=== PATIENT | female | born 1970 | race Caucasian/White ===

== ENCOUNTER 2019-04-25 15:55 | Outpatient (CLI) | payer OTHER, SELFPAY ==
--- NOTE | ~2019-04-25 | MM_ITS ---
EXAMINATION: MM screening [facility] BI w jamie HISTORY: Screening mammogram TECHNIQUE: Craniocaudal and mediolateral oblique 3-D tomosynthesis images were obtained and synthetic 2-D images were generated. CAD analysis was submitted and interpreted. COMPARISON: 04/07/2018, 02/28/2017, 02/21/2016 bilateral digital screening mammogram examinations BREAST PARENCHYMAL COMPOSITION: The breasts are almost entirely fatty... FINDINGS: There is no evidence of suspicious mass, calcification, or architectural distortion to sugg est malignancy in either breast. There has been no suspicious interval change. IMPRESSION: 1. No mammographic evidence of malignancy. 2. Recommend routine screening mammography in one year. BI-RADS Category 1: Negative Reviewed, dictated and finalized at location A. E WATER OPERATOR
== END 2019-04-25 15:56 | disposition home or self-care (01) ==
LOC: ANHIMG 15:58
PROVIDERS: PCP Family Medicine; Visit Provider Family Medicine
DX: Z12.31 Encounter for screening mammogram for malignant neoplasm of breast (principal)
CPT/HCPCS: 77063; 77067

== ENCOUNTER 2020-06-02 15:35 | Outpatient (CLI) | payer OTHER, SELFPAY ==
--- NOTE | ~2020-06-02 | MM_ITS ---
EXAMINATION: MM screening [facility] BI w jamie HISTORY: Screening TECHNIQUE: Craniocaudal and mediolateral oblique 3-D tomosynthesis images were obtained and synthetic 2-D images were generated. CAD analysis was submitted and interpreted. COMPARISON: Comparison to multiple prior studies sequentially, with oldest reviewed study dated 01/18. BREAST PARENCHYMAL COMPOSITION: There are scattered areas of fibroglandular density. FINDINGS: There is no evidence of suspicious mass, calcification, or architectural distortion to sugg est malignancy in either breast. There has been no suspicious interval change. IMPRESSION: 1. No mammographic evidence of malignancy. 2. Recommend routine screening mammography in one year. BI-RADS Category 1: Negative Reviewed, dictated and finalized at location A.
== END 2020-06-02 15:36 | disposition home or self-care (01) ==
LOC: ANHIMG 15:40
PROVIDERS: PCP Family Medicine; Visit Provider Family Medicine
DX: Z12.31 Encounter for screening mammogram for malignant neoplasm of breast (principal)
CPT/HCPCS: 77063; 77067

== ENCOUNTER → 2021-01-25 03:55 | Outpatient (CLI) | payer OTHER, SELFPAY ==
[2021-01-25 16:54] LABS: SARS-CoV-2 RNA PCR Negative
== END ==
PROVIDERS: PCP Family Medicine; Visit Provider Internal Medicine Gastroenterology
DX: Z01.812 Encounter for preprocedural laboratory examination (principal); Z20.822 Contact with and (suspected) exposure to COVID-19
CPT/HCPCS: C9803; U0003; U0005

== ENCOUNTER 2021-01-28 02:10 | Day surgery (SDC) | payer OTHER, SELFPAY ==
[2021-01-17 12:33] VITALS: BMI 27.4
--- NOTE | 2021-01-28 09:00 | P.PNAN_ITS ---
Anes - Initial Pre Proc Eval Procedure: Operation Date: 01/28/21 10:00 Proposed Procedures p Screening Colonoscopy - Dmitriy Whitlock MD Date/Time: 01/28/21 09:00 Surgeon: Dmitriy Whitlock MD Pre Op Diagnosis: neoplasm screening Patient Data Age: 50 Gender: F Height: 1.57 m Weight: 68.1 kg Allergies Allergy/AdvReac Type Severity Reaction Status Date / Time No Known Allergies Allergy Verified 01/28/21 08:59 Home Medications Medication Instructions Recorded Confirmed Type aspirin 81 mg tablet,delayed 81 mg PO DAILY 05/21/19 01/28/21 History release glucosamine-chondroitin 250 mg-200 1 tablet PO BID tablet 09/10/19 01/28/21 History mg tablet levonorgestrel 20 mcg/24 hours (7 1 device I-UTERINE ONCE 09/10/19 01/28/21 History yrs) 52 mg intrauterine device minoxidil 5 % topical foam 5 % TOPICAL DAILY 09/10/19 01/28/21 History multivitamin 1 tablet PO DAILY 09/10/19 01/28/21 History rosuvastatin 20 mg tablet 20 mg PO DAILY 08/13/20 01/28/21 History spironolactone 100 mg tablet See Rx Instructions .ROUTE 11/13/20 01/28/21 Rx .COMPLEX #90 tablet levothyroxine 25 mcg tablet See Rx Instructions .ROUTE 12/05/20 01/28/21 Rx .COMPLEX #90 tablet Patient hx anesthesia problems: none Family hx anesthesia problems: none Results Review: All pre-operative results and documents have been reviewed as part of the pre-operative evaluation. [facility] Past Medical History Medical History Female pattern hair loss Hyperlipidemia, unspecified Hypothyroidism, unspecified Surgical History Surgical History Hx of section 2001 & 2005 Family History Family History Father Hypertension, Onset Age: 40 Cerebrovascular accident, Onset Age: 40 Family history of coronary artery disease, Onset Age: 40 Patient's father is , Onset Age: 40 Mother Family history of malignant neoplasm of ovary Patient's mother is , Onset Age: 40 Social History Social History Smoking status: Never smoker Second hand tobacco smoke exposure: No Alcohol intake: current Drinks per week: 1 Alcohol use details: social Substance use: never Substance use type: does not use Living arrangements: with family Gender identity (if verbalized by the patient): Female Spiritual care concerns: No Anes - Eval Final PreProcedure Day of Procedure 01/28/21 09:00 Patient weight: overweight Heart: regular rate and rhythm Lungs: clear to auscultation Airway: Mallampati scale class II Neurological: alert and oriented Last oral intake: >/= 8 hours ASA classification: II Emergent: no Anesthetic plan: proceed Anesthesia type and monitoring: general GIVS and standard monitoring Results Review: All pre-operative results and documents have been reviewed as part of the pre-operative evaluation. Informed Consent: The patient's anesthetic plan and its attendant risks and benefits were discussed with the patient/family/POA. Questions were solicited and answers provided to the satisfaction of the patient/family/POA.
[2021-01-28 09:01] VITALS: BP 119/67; PULSE 92; RESP 16; TEMP 36.1; O2SAT 98; BMI 22.8
[2021-01-28] MEDS: LACTATED RINGERS 1,000 ML 150 ML IV CONT (09:10)
--- NOTE | 2021-01-28 09:14 | PM.HPGS ---
History of Present Illness History of Present Illness Consent: Risks, benefits, and alternatives have been discussed and questions answered. Patient agrees to proceed with procedure. Chief complaint: neoplasm screening Narrative: Socorro Montoya is a 50 year old female here for first screening colonoscopy Review of Systems Constitutional: Constitutional: Denies headache(s) and Denies weakness Eyes: Eyes: Denies blurry vision ENT: Reports Normal hearing present, Denies headache(s) and Denies neck pain Cardiovascular: Cardiovascular: Denies chest pain and Denies dyspnea Respiratory: Respiratory: Denies dyspnea Gastrointestinal: Gastrointestinal: Reports no additional gastrointestinal complaints Genitourinary: Genitourinary: Denies dysuria Musculoskeletal: Musculoskeletal: Denies neck pain Integumentary/Breasts: Skin/Breast: Denies dry skin Neurologic: Reports Normal hearing present, Denies headache(s) and Denies weakness Psychiatric: Psychiatric: Denies anxiety Endocrine: Endocrine: Denies change in body appearance Hematologic/Lymphatic: Hematologic/Lymphatic: Denies easy bleeding Allergic/Immunologic: Allergic/Immunologic: Denies urticaria PMFSH Past Medical History Medical History Female pattern hair loss Hyperlipidemia, unspecified Hypothyroidism, unspecified Surgical History Surgical History Hx of section 2001 & 2005 Family History Family History Father Hypertension, Onset Age: 40 Cerebrovascular accident, Onset Age: 40 Family history of coronary artery disease, Onset Age: 40 Patient's father is , Onset Age: 40 Mother Family history of malignant neoplasm of ovary Patient's mother is , Onset Age: 40 Social History Social History Smoking status: Never smoker Second hand tobacco smoke exposure: No Alcohol intake: current Drinks per week: 1 Alcohol use details: social Substance use: never Substance use type: does not use Living arrangements: with family Gender identity (if verbalized by the patient): Female Spiritual care concerns: No Meds Home Medications and Allergies Home Medications Medication Instructions Recorded Confirmed Type aspirin 81 mg tablet,delayed 81 mg PO DAILY 05/21/19 01/28/21 History release glucosamine-chondroitin 250 mg-200 1 tablet PO BID tablet 09/10/19 01/28/21 History mg tablet levonorgestrel 20 mcg/24 hours (7 1 device I-UTERINE ONCE 09/10/19 01/28/21 History yrs) 52 mg intrauterine device minoxidil 5 % topical foam 5 % TOPICAL DAILY 09/10/19 01/28/21 History multivitamin 1 tablet PO DAILY 09/10/19 01/28/21 History rosuvastatin 20 mg tablet 20 mg PO DAILY 08/13/20 01/28/21 History spironolactone 100 mg tablet See Rx Instructions .ROUTE 11/13/20 01/28/21 Rx .COMPLEX #90 tablet levothyroxine 25 mcg tablet See Rx Instructions .ROUTE 12/05/20 01/28/21 Rx .COMPLEX #90 tablet Allergies Allergy/AdvReac Type Severity Reaction Status Date / Time No Known Allergies Allergy Verified 01/28/21 08:59 Vital Signs Vital Signs - 24 hr 01/28/21 09:01 Temperature 97.0 F L Pulse Rate 92 Respiratory Rate 16 Blood Pressure 119/67 Pulse Oximetry 98 Exam Const: General: comfortable and no acute distress HENMT: General nose exam: Normal nares present Eyes: General: appearance normal, both eyes and all related structures Neck: Neck: no JVD Resp: Auscultation: clear to auscultation bilaterally Cardio: Rate: regular rate Rhythm: regular rhythm GI: Inspection: non-distended GI Palp: Yes Soft to palpation Skin: General skin exam: normal color Neuro: General: gait normal Speech: normal speech Extrem: General: normal to inspection Psy
[2021-01-28 09:33] VITALS: BP 97/62; PULSE 79; RESP 13; O2SAT 98
[2021-01-28 09:43] VITALS: BP 121/74; PULSE 58; RESP 18; O2SAT 96
[2021-01-28 09:53] VITALS: BP 109/89; PULSE 76; RESP 20; O2SAT 100
== END 2021-01-28 10:20 | disposition home or self-care (01) ==
PROVIDERS: PCP Family Medicine; Visit Provider Internal Medicine Gastroenterology
PROC: 0DJD8ZZ Inspection of Lower Intestinal Tract, Via Natural or Artificial Opening Endoscopic (ICD-10-PCS; CPT 45378; principal; 2021-01-28 10:00)
DX: Z12.11 Encounter for screening for malignant neoplasm of colon (principal); K64.8 Other hemorrhoids; E03.9 Hypothyroidism, unspecified; E78.5 Hyperlipidemia, unspecified; Z79.82 Long term (current) use of aspirin
CPT/HCPCS: 45378; C9803; J2704; J7120; U0003; U0005

== ENCOUNTER 2021-08-09 17:28 | Outpatient (CLI) | payer OTHER, SELFPAY ==
--- NOTE | ~2021-08-09 | MM_ITS ---
EXAMINATION: MM screening [facility] BI w jamie HISTORY: Screening mammogram TECHNIQUE: Craniocaudal and mediolateral oblique 3-D tomosynthesis images were obtained and synthetic 2-D images were generated. CAD analysis was submitted and interpreted. COMPARISON: 06/02/2020, 04/25/2019, 03/21/2018 bilateral screening mammogram examinations BREAST PARENCHYMAL COMPOSITION: There are scattered areas of fibroglandular density. FINDINGS: There is no evidence of suspicious mass, calcification, or architectural distortion to sugg est malignancy in either breast. There has been no suspicious interval change. IMPRESSION: 1. No mammographic evidence of malignancy. 2. Recommend routine screening mammography in one year. BI-RADS Category 1: Negative Reviewed, dictated and finalized at location A.
== END 2021-08-09 17:29 | disposition home or self-care (01) ==
PROVIDERS: PCP Family Medicine; Visit Provider Family Medicine
DX: Z12.31 Encounter for screening mammogram for malignant neoplasm of breast (principal)
CPT/HCPCS: 77063; 77067

== ENCOUNTER 2023-01-16 16:39 | Outpatient (CLI) | payer OTHER, SELFPAY ==
--- NOTE | ~2023-01-16 | MM_ITS ---
EXAMINATION: MM screening [facility] BI w jamie HISTORY: Screening TECHNIQUE: Craniocaudal and mediolateral oblique 3-D tomosynthesis images were obtained and synthetic 2-D images were generated. CAD analysis was submitted and interpreted. COMPARISON: Comparison to multiple prior studies sequentially, with oldest reviewed study dated 07/2015. BREAST PARENCHYMAL COMPOSITION: There are scattered areas of fibroglandular density. FINDINGS: There is no evidence of suspicious mass, calcification, or architectural distortion to sugg est malignancy in either breast. There has been no suspicious interval change. IMPRESSION: 1. No mammographic evidence of malignancy. 2. Recommend routine screening mammography in one year. BI-RADS Category 1: Negative Reviewed, dictated and finalized at location A.
== END 2023-01-16 16:40 | disposition home or self-care (01) ==
LOC: ANHIMG 16:44
PROVIDERS: PCP Family Medicine; Visit Provider Family Medicine
DX: Z12.31 Encounter for screening mammogram for malignant neoplasm of breast (principal)
CPT/HCPCS: 77063; 77067

== ENCOUNTER 2024-04-15 14:55 | Outpatient (CLI) | payer OTHER, SELFPAY ==
--- NOTE | ~2024-04-15 | MM_ITS ---
EXAMINATION: MM screening ahmet BI w jamie HISTORY: Screening TECHNIQUE: Craniocaudal and mediolateral oblique 3-D tomosynthesis images were obtained and synthetic 2-D images were generated. CAD analysis was submitted and interpreted. COMPARISON: Comparison to multiple prior studies sequentially, with oldest reviewed study dated 02/16. BREAST PARENCHYMAL COMPOSITION: Not dense: There are scattered areas of fibroglandular density. FINDINGS: There is no evidence of suspicious mass, calcification, or architectural distortion to sugg est malignancy in either breast. There has been no suspicious interval change. IMPRESSION: 1. No mammographic evidence of malignancy. 2. Recommend routine screening mammography in one year. BI-RADS Category 1: Negative Reviewed, dictated and finalized at location [facility]
--- OUTSIDE RECORDS SUMMARY | 2024-04-15 15:26 | XMS_ITS | Continuity of Care Document ---
Author Organization [facility] [place] [place] Address [address] [place] [address] Phone Care Team Providers Care Loom Stop Checker Name Role Phone Osorio OD, Deny Unavailable Unavailable Procedures Procedure Date Cntct Lens Hydrophilic Toric Or Prism [facility] Medical Tax Contact Lens Hydrophilic, Spherical [facility] Medical Contact Lens Check Contact Lens Check Contact Lens Check Contact Lens Check Contact Lens Check Contact Lens Check Contact Lens Hydrophilic, Spherical [facility] PageBites Eye Exam & Treatment Refraction Contact Lens Hydrophilic, Spherical [facility] Office/outpatient Visit, Est Office/outpatient Visit, Est Office/outpatient Visit, Est Eye Exam, New Patient Advance Directives Directive Yes / No Effective Date File Name No Information Encounters Encounter Description Practice Location Reason(s) For Visit Diagnoses Date Provider Providers Copied on Encounter [facility], [address], [place], [place], [id number], [place] tel:[phone] [facility] No Information Oct-2 6-201 0 Osorio OD Deny. [address] , [address], [place], [address], [place]. tel:[phone] [facility], [address], [place], [place], [id number], [place] tel:[phone] [facility] No Information Apr-2 3-201 0 Osorio OD Deny. [address] , [address], [place], [place], [facility], [place]. tel:[phone] [facility], [address], [place], [place], [id number], [place] tel:[phone] [facility] No Information Apr-0 8-201 0 Osorio OD Deny. [address] , [address], [place], [place], [facility], [place]. tel:[phone] [facility], [address], [place], [place], [id number], [place] tel:[phone] [facility] No Information Mar-2 5-201 0 Osorio OD Deny. [address] , [address], [place], [facility], [place]. tel:[phone] [facility], [address], [place], [place], [id number], [place] tel:[phone] [facility] No Information Mar-1 8-201 0 Osorio OD Deny. [address] , [address], [place], [facility], [place]. tel:[phone] [facility], [address], [place], [place], [id number], [place] tel:[phone] [facility] No Information Mar-0 4-201 0 Osorio OD Deny. [address] , [address], [place], [address], [place]. tel:[phone] [facility], [address], [place], [place], [address], [place] tel:[phone] [facility] No Information Feb-1 9-201 0 Osorio OD Deny. [address] , [address], [place], [address], [place]. tel:[phone] [facility], [address] [place] [address] [address], [place], [place], [address], [place] tel:[phone] [facility] No Information 1-201 0 Osorio OD Deny. [address] , [address], [place], [facility], [place]. tel:[phone] [facility], [address] [place] [address] [address], [place], [place], [address], [place] tel:[phone] [facility] No Information 5-201 0 Osorio OD Deny. [address] , [address], [place], [facility], [place]. tel:[phone] [facility], [address] [place] [address] [address], [place], [place], [address], [place] tel:[phone] [facility] No Information 4-201 0 Osorio OD Deny. [address] , [address], [place], [facility], [place]. tel:[phone] [facility], [address] [place] [address] [address], [place], [place], [id number], [place] tel:[phone] [facility] No Information 6-200 9 Osorio OD Deny. [address] , [address], [place], [address], [place]. tel:[phone] Office/outpat ient Visit, Est [facility], [address] [place] [address] [address], [place], [place], [address], [place] tel:[phone] [facility] No Information 0 5-200 9 Osorio OD Deny. [address] , [address], [place], [facility], . tel:[phone] Office/outpat ient Visit, [facility], [address], [place], [place], [address], tel:[phone] [facility] No Information Oct-1 5-200 9 Osorio OD Deny. [address] [facility] , [address], [place], [facility], [place]. tel:[phone] Office/outpat ient Visit, [facility], [address], [place], [place], [address], tel:[phone] [facility] No Information Oct-0 8-200 9 Osorio OD Deny. [address] [facility] , [address], [place], [facility], . tel:[phone] [facility], [address], [place], [place], [id number], tel:[phone] [facility] No Information Oct-0 2-200 9 Krishnasamy Juanito. [address] [facility] [address], [place], [facility], . tel:[phone] Family History Family Member Type Diagnosis Age At Onset No Information Payers Payer name Insurance type Covered democrat ID Authoriza tion(s) No Information Social History Type Description Quantity Date Captured Comments Sex Female Smoking Status No Information Chief Complaint And Reason For Visit No Information Reason For Referral Reason For Referral No Information History Of Present Illness Encounter Date Complaint History Of Prese nt Illness No Information Functional Status Date Functional Assessmen t No Information Instructions Date Instruction Additional Infor mation No Information Assessments Type Assessment Date No Information Patient Care Teams Name Effective Dates (start - stop) Status Members No Information
--- OUTSIDE RECORDS SUMMARY | 2024-04-15 15:26 | XMS_ITS | Referral Summary ---
Author Organization [facility] [address] [facility] [address] Address [address] [place] [address] Care Team Providers Care Distributor Of Directories Name Role Phone Hailey Tom MD Primary Care Provider [phone] Encounters Date Type Department Care Team Description 04/09/2024 9:15 AM RUM PROCESSING OPERATOR Office Visit [facility] Cardiology [address] [facility] [address] [place] [address] Harjinder Bonilla MD [facility] coronary artery calcium score less than 100 (Primary Dx); Family history of ischemic heart disease; Elevated lipoprotein(a) from Last 3 Months Medications spironolactone (ALDACTONE) 100 mg tablet Take 1 tablet (100 mg total) by mouth daily Active levothyroxine (SYNTHROID, LEVOTHROID) 25 mcg tablet Take 1 tablet (25 mcg total) by mouth daily Active glucosam-delmis- ayh0-M-ocoj-bessie sw 750 mg-644 mg- 30 mg-1 mg tablet Take by mouth 2 (two) times a day. Active aspirin 81 mg tablet Take 1 tablet (81 mg total) by mouth daily Active multivitamin capsule Take 1 capsule by mouth daily Active minoxidil 5 % foam Apply topically daily. Active levonorgestreL (MIRENA) IUD 1 each by intrauterine route once Active Xhance 93 mcg/actuation aerosol breath activated 10/30/19 24 Active rosuvastatin (CRESTOR) 40 mg tablet Take 1 tablet (40 mg total) by mouth nightly 90 tablet 6 04/09/19 25 Active rosuvastatin (CRESTOR) 20 mg tablet TAKE 1 TABLET(20 MG) BY MOUTH DAILY 90 tablet 5 04/02/19 24 025 Discontinued Active Problems No known active problems Social History Tobacco Use Types Packs/Day Years Used Date Smoking Tobacco: Never Smokeless Tobacco: Never Tobacco Cessation:Counseling Given: Not Answered Alcohol Use Standard Drinks/Week Comments Yes 1 (1 standard drink = 0.6 oz pur e alcohol) Comments Unknown Sex and Gender Information Value Date Recorded Sex Assigned at Not on file Legal Sex Female 9:28 AM RUM PROCESSING OPERATOR Gender Identity Not on file Sexual Orientation Not on file Last Filed Vital Signs Vital Sign Reading Time Taken Comments Blood Pressure 112/64 04/09/2024 9:13 AM RUM PROCESSING OPERATOR Pulse 84 04/09/2024 9:13 AM RUM PROCESSING OPERATOR Temperature - - Respiratory Rate 15 12/15/2020 11:54 AM CDT Oxygen Saturation 98% 04/09/2024 9:13 AM RUM PROCESSING OPERATOR Inhaled Oxygen Concentration - - Weight 73.5 kg (162 lb) 04/09/2024 9:13 AM RUM PROCESSING OPERATOR Height 157.5 cm (5' 2 ) 04/09/2024 9:13 AM RUM PROCESSING OPERATOR Body Mass Index 29.63 04/09/2024 9:13 AM RUM PROCESSING OPERATOR Plan of Treatment Not on file Insurance [facility] O Care Teams Distributor Of Directories Relationship Specialty Start Date End Date Hailey Tom MD PCP - General 05/13/14
--- OUTSIDE RECORDS SUMMARY | 2024-04-15 15:26 | XMS_ITS | Clinical Summary ---
Author Organization [facility] [address] [place] [address] [address] [facility] [address] [place] [address] Care Team Providers Care Knife Finisher Name Role Phone Hailey Tom MD Primary Care Provider [phone] Medications spironolactone (ALDACTONE) 100 mg tablet Take 1 tablet (100 mg total) by mouth daily Active levothyroxine (SYNTHROID, LEVOTHROID) 25 mcg tablet Take 1 tablet (25 mcg total) by mouth daily Active glucosam-delmis- jpn1-X-mtsi-bessie sw 750 mg-644 mg- 30 mg-1 mg [...] Discontinued Active Problems No known active problems Encounters Date Type Department Care Team Description 04/09/2024 9:15 AM DROP WIRE BUILDER Office Visit [facility] Cardiology [address] [facility] [address] [place] [address] Harjinder Bonilla MD [place] coronary artery calcium score less than 100 (Primary Dx); Family history of ischemic heart disease; Elevated lipoprotein(a) from Last 3 Months Medical History Medical History Date Comments Hx Other Medical atypical chest pain Hx Other Medical dyslipidemia Hypothyroidism Hypothyroidism Family History Medical History Relation Name Comments Heart attack Father 2 NC; Cause of De ath: NC Other Maternal Grandmother 2 NC, B reast Cancer; Cause of : NC, Breast Cancer Ovarian cancer Mother 2 Cancer, ovari an; Heart attack Paternal Grandmother 2 NC; C ause of : NC Relation Name Status Comments Father 1 (Age 40) Father 2 Maternal Grandmother 1 (Age 60) Maternal Grandmother 2 Mother 1 Alive Mother 2 Paternal Grandmother 1 (Age 60) Paternal Grandmother 2 Social History Tobacco Use Types Packs/Day Years Used Date Smoking Tobacco: Never Smokeless Tobacco: Never Tobacco Cessation:Counseling Given: Not Answered Alcohol Use Standard Drinks/Week Comments Yes 1 (1 standard drink = 0.6 oz pur e alcohol) Comments Unknown Sex and Gender Information Value Date Recorded Sex Assigned at Not on file Legal Sex Female 9:28 AM DROP WIRE BUILDER Gender Identity Not on file Sexual Orientation Not on file Obstetrics History Last Filed Vital Signs Vital Sign Reading Time Taken Comments Blood Pressure 112/64 04/09/2024 9:13 AM DROP WIRE BUILDER Pulse 84 04/09/2024 9:13 AM DROP WIRE BUILDER Temperature - - Respiratory Rate 15 12/15/2020 11:54 AM CDT Oxygen Saturation 98% 04/09/2024 9:13 AM DROP WIRE BUILDER Inhaled Oxygen Concentration - - Weight 73.5 kg (162 lb) 04/09/2024 9:13 AM DROP WIRE BUILDER Height 157.5 cm (5' 2 ) 04/09/2024 9:13 AM DROP WIRE BUILDER Body Mass Index 29.63 04/09/2024 9:13 AM DROP WIRE BUILDER Plan of Treatment Health Maintenance Due Date Last Done Comments Breast Cancer Screening-Mammogram 1970 Cervical Cancer Screening 1970 Colon Cancer Screening-Colonoscopy 1970 Depression Screening 1970 Hepatitis C Screening 1970 DTaP/Tdap/Td Vaccine (1 - Tdap) 1981 Hepatitis B Screening 1988 Regular Well Visit/Exam 18-64 1988 Zoster Vaccine (1 of 2) 2020 Influenza Vaccine (#1) 2023 12/26/2018, 10/17/2013 Pneumococcal vaccine <65 Aged Out No longer eligible based on patient's age to complete this topic [facility] Care Teams Knife Finisher Relationship Specialty Start Date End Date Hailey Tom MD PCP - General 05/13/14
--- OUTSIDE RECORDS SUMMARY | 2024-04-15 15:26 | XMS_ITS | Clinical Summary ---
Author Organization [facility] Address Pending sale to [facility]. [place], [place] [id number] [place] [id number] Care Team Providers Care Prepared Foods Associate Name Role Phone None, Provider MD Primary Care Provider Unavaila ble Allergies No known active allergies Medications aspirin EC (ECOTRIN) 81 MG tablet Take 81 mg by mouth daily. Active Multiple Vitamins-Minera ls (MULTIVITAMIN ADULT EXTRA C OR) Take 1 capsule by mouth daily. Active levocetirizine 5 MG Tab Take 1 tablet by mouth daily. 2 Active levonorgestrel (MIRENA) 20 MCG/DAY IUD 1 each by Intrauterine route once. Active levothyroxine (SYNTHROID) 25 MCG tablet Take 1 tablet by mouth daily. 2 Active Minoxidil 5 % Foam Apply topically daily. Active Misc Natural Products (OSTEO BI-FLEX ADV TRIPLE ST) Tab Take by mouth 2 (two) times daily. Active rosuvastatin (CRESTOR) 20 MG tablet 2 Active spironolactone (ALDACTONE) 100 MG tablet Take 1 tablet by mouth daily. 2 Active tobramycin (TOBREX) 0.3 % ophthalmic solution 3 Active Active Problems No known active problems Family History Medical History Relation Comments Heart Disease Brother Heart Disease Father Heart Disease Maternal Grandmother Heart Disease Paternal Grandmother Relation Status Comments Brother Father Maternal Grandmother Paternal Grandmother Social History Tobacco Use Types Packs/Day Years Used Date Smoking Tobacco: Never Smokeless Tobacco: Never Tobacco Cessation:Counseling Given: Not Answered Alcohol Use Standard Drinks/Week Comments Yes 0 (1 standard drink = 0.6 oz pur e alcohol) occasionally Comments No Sex and Gender Information Value Date Recorded Sex Assigned at Not on file Legal Sex Female 11:17 AM CONTROL DIRECTOR Gender Identity Not on file Sexual Orientation Not on file Last Filed Vital Signs Vital Sign Reading Time Taken Comments Blood Pressure 133/73 05/04/2022 1:05 PM CONTROL DIRECTOR Pulse 79 05/04/2022 1:05 PM CONTROL DIRECTOR Temperature 36.8 ??C (98.3 ??F) 05/04/2022 1:05 PM CS T Respiratory Rate 16 05/04/2022 1:05 PM CONTROL DIRECTOR Oxygen Saturation 99% 05/04/2022 1:05 PM CONTROL DIRECTOR Inhaled Oxygen Concentration - - Weight 72.7 kg (160 lb 3.2 oz) 05/04/2022 1:05 P M CONTROL DIRECTOR Height 157.5 cm (5' 2 ) 05/04/2022 1:05 PM CONTROL DIRECTOR Body Mass Index 29.3 05/04/2022 1:05 PM CONTROL DIRECTOR Plan of Treatment Health Maintenance Due Date Last Done Comments Colorectal Cancer Screening Colonoscopy (10 Years) 1970 Annual Physical 1973 PHQ-2 (Physician [place]) 1982 Hepatitis C 1988 DTaP, Tdap and Td Vaccines ( 1 - Tdap) 1989 Hepatitis B Vaccines (1 of 3 - 19+ 3-dose series) 1989 Cervical Cancer Screening Pa p with HPV Testing (Age 30 to 64) Every 5 Years 2000 Mammogram Screening 2010 Zoster Vaccines (1 of 2) 2020 COVID-19 Vaccine (1 - 2023-2 5 season) 2023 Influenza Adult (#1) 2023 12/26/2018 PHQ-2 (Physician [place]) 03/19/2024 Cervical Cancer Screening Pa p Smear (Age 30 to 64) Every 3 Years 12/26/2024 12/26/2021 Cervical Cancer Screening with HPV 12/26/2024 Meningococcal B Vaccine Aged Out No l onger eligible based on patient's age to complete this topic Meningococcal Vaccine Aged Out No ruslan del eligible based on patient's age to complete this topic Pneumococcal Vaccine: Pediat rics (0 to 5 Years) and At-Risk Patients (6 to 64 Years) Aged Out No longer eligi ble based on patient's age to complete this topic RSV Immunizations Under 20 Months Aged Out No longer eligible based on patient's age to complete this topic Insurance [employer] Care Teams Prepared Foods Associate Relationship Specialty Start Date End Date None, Provider, PCP - General UNKNOWN PHYSICIAN SPECIALTY 05/04/22
--- OUTSIDE RECORDS SUMMARY | 2024-04-15 15:26 | XMS_ITS | Patient Health Summary ---
Author Organization [facility] Address [address] [place] [address] Care Team Providers Care Construction Electrician Name Role Phone Hailey Tom MD Primary Care Provider [phone] Note from [facility][note 3],non-owned Affiliates and Associated Physician Practices is amultiple site organization consisting of ambulatory clinics and hospital sitesin [place], [place], [place] and [place]. This disclosure is being madepursuant to the Care Everywhere program and may not contain all information available regarding this patient. Last updated 17.[facility] Allergies No known active allergies Medications * Be aware that medications may not be up to date on this document. Alwaysverify current medications with the patient. * aspirin (ASPIRIN) 81 MG tablet(Started 10/27/2015) Take 81 mg by mouth DAILY. * levothyroxine (SYNTHROID) 25 MCG tablet(Started 10/27/2015) Take 1 tablet by mouth. 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
--- OUTSIDE RECORDS SUMMARY | 2024-04-15 15:26 | XMS_ITS | Encounter Summary ---
Author Organization [facility] Address 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
--- OUTSIDE RECORDS SUMMARY | 2024-04-15 15:26 | XMS_ITS | Encounter Summary ---
Author Organization [facility] Address [address] [place] [address] Care Team Providers Care Acute Care Nurse Practitioner Name Role Phone Hailey Tom MD Primary Care Provider [phone] Encounter Details Date Type Department Care Team (Late st Contact Info) Description 06/22/2020 Telephone [facility] [address] [place] [address] Dalia Aguayo, Social History Tobacco Use Types Packs/Day Years Used Date Smoking Tobacco: Never Smokeless Tobacco: Never Alcohol Use Standard Drinks/Week Comments Yes 1 (1 standard drink = 0.6 oz pur e alcohol) Comments Unknown Sex and Gender Information Value Date Recorded Sex Assigned at Not on file Legal Sex Female 9:28 AM HOG RAISER Gender Identity Not on file Sexual Orientation Not on file documented as of this encounter Plan of Treatment Not on file documented as of this encounter Visit Diagnoses Not on filedocumented in this encounter Care Teams Acute Care Nurse Practitioner Relationship Specialty Start Date End Date Hailey Tom MD PCP - General 05/13/14 documented as of this encounter
--- OUTSIDE RECORDS SUMMARY | 2024-04-15 15:26 | XMS_ITS | Clinical Summary ---
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
--- OUTSIDE RECORDS SUMMARY | 2024-04-15 15:26 | XMS_ITS | Data Portability ---
Author Organization [facility] Address [address] [place] [address] Care Team Providers Care Nursing Manager Name Role Phone SANJUANA VILLALOBOS Primary Care Provider [phone] Assessment Encounter Date Assessment Date Assessment LastModified by Organization Details LastModified Time 12/26/2021 12/26/2021 Annual gynecological exam performed. Patient will come back in a year unless there are new symptoms. Not available 12/26/2021 11:50:22 02/02/2023 02/02/2023 Annual gynecological exam performed. Patient will come back in a year unless there are new symptoms. Not available 02/02/2023 13:41:09 02/05/2024 02/05/2024 Annual gynecological exam performed. Patient will come back in a year unless there are new symptoms. [email or web address] Not available 02/05/2024 16:21:37 Plan of Treatment Reminders Order Date Submit Date Provider Last Modified By Organization Details Last Modified Time Details Appointments None recorded. Lab pap, IG + HR HPV - HPV regardless but if HPV is positive need subtyping 16,18/45 2023 024 [facility] (Lab), [address], [place], [address], 16:17:24 Referral None recorded. Procedures None recorded. Surgeries None recorded. Imaging MAMMO, screening, digital, bilateral 2023 024 [email or web address] Not available 04:03:28 Medication Orders None recorded. Patient TargetsNo targets recorded. Patient InstructionsNo instructions recorded. Reason for Referral None Reported. Results Created Date Observation Date Name Description Value Unit Range Abnormal Flag Note LastModifiedBy Organization Detail LastModifiedTime 12/27/19 22 12/26/2021 IMAGE GUIDE D PAP AND HPV REGAR DLESS image guided Pap, HPV regardless of Pap result SEE RESULT S BELOW CASE REPOR T: Cytol ogy Gynec ologi nilda Repor t Case: [id number] Autho arjun lenz Provi linda: Enrico Tamez Colle cted: 12/26 1717 ASSISTANT MECHANIC Order ing Locat ion: [place] Patho logy Recei aleisha: 12/27 0914 First Scree n: Roberto recinos, Adarsh jaramillo, CT Rescr een: Odilon Timmons ed, CT Speci men: Abida emery Pap - Image d, Cervi x STATE MENT OF ADEQU ACY: Satis facto ry for evalu ation Trans forma tion zone compo nent absen t The absen ce of an endoc ervic al compo nent was confi rmed by an addit ionalexandria ziegler. FINAL DIAGN OSIS: Negat luma for Intra epith elial Lesio n or Rodger gan (NIL) . Elect jammie limon d by Odilon Timmons ed, CT on 01/01 at 6:14 PM ----- ----- ----- ----- ----- ----- ----- ----- ----- ----- ----- ----- ----- ----- ----- ----- ----- ---- HPV RESUL TS: HPV mRNA E6/E7 : No HPV mRNA Detec shea NOTE: This high risk HPV mRNA assay detec ts fourt een high- risk HPV types (16, 18, 31, 33, 35, 39, 45, 51, 52, 56, 58, 59, 66, 68) witho ut diffe renti ation . COMME NT: Note: This speci men was revie wed by a Cytot echno logis t and/o r Patho logis t (as indic ated in this repor t) after evalu ation using the Thinp rep Imagi ng Syste m. CLINI NILDA INFOR MATIO N: Menst rual Statu s: LMP (if appli cable ): Clini nilda Histo ry/Pr eviou s Pap: Type of Neopl lizabeth (if appli cable ): Signi fican t Clini nilda Findi ngs: Other Histo ry: Hormo migel (if appli cable ): PAP EDUCA FRANCES L NOTE: The Pap Test is a scree yuly test with an inher ent false negat luma rate. Liqui d-bas ed sampl ing may decre ase, but will not elimi davian, false negat luma resul ts. A negat luma resul t does not precl ude the prese nce and/o r devel opmen t of disea se, since the prese nce of abnor mal cells in the sampl e depen ds on the locat ion of the lesio n and sampl ing techn ique. Hugh nued regul ar scree yuly is the best metho d of cance r preve ntion . If repor shea cytol ogic findi ng do not corre late with physi nilda and/o r histo rical findi ngs, furth er inves tigat ion is recom alma delia d, as clini mak [place] nted. Not Available [facility] Infectious Disease [address] [place], [address], 01/01/2022 19:18:11 02/03/20 23 02/02/2023 IMAGE GUIDE D PAP AND HPV REGAR DLESS image guided Pap, HPV regardless of Pap result SEE RESULT S BELOW CASE REPOR T: Cytol ogy Gynec ologi nilda Repor t Case: [id number] Autho arjun lenz Provi linda: Enrico Tamez Colle cted: 02/02 1457 ASSISTANT MECHANIC Order ing Locat ion: [place] Patho [place]y Recei aleisha: 02/05 0718 First Scree n: Nacha mpass ak, Sivil ay, CT Speci men: Scree yuly Pap - Image d, Cervi x STATE MENT OF ADEQU ACY: Satis facto ry for evalu ation Trans forma tion zone compo nent prese nt FINAL DIAGN OSIS: Negat luma for Intra epith elial Lesio polo or Rodger gan (NIL) . Elect jammie limon d by Stacey thomas, Kevan sellers, CT on 02/06 at 4:37 PM ----- ----- ----- ----- ----- ----- ----- ----- ----- ----- ----- ----- ----- ----- ----- ----- ----- ---- HPV RESUL TS: HPV mRNA E6/E7 : No HPV mRNA Detec shea NOTE: This high risk HPV mRNA assay detec ts fourt een high- risk HPV types (16, 18, 31, 33, 35, 39, 45, 51, 52, 56, 58, 59, 66, 68) witho ut diffe renti ation . COMME NT: This speci men was revie wed by a Cytot echno logis t and/o r Patho logis t (as indic ated in this repor t) after evalu ation using the Thinp rep Imagi ng Syste m. CLINI NILDA INFOR MATIO N: Menst rual Statu s: LMP (if appli cable ): Clini nilda Histo ry/Pr eviou s Pap: Type of Neopl lizabeth (if appli cable ): Signi fican t Clini nilda Findi ngs: Other Histo ry: Hormo migel (if appli cable ): PAP EDUCA FRANCES L NOTE: The Pap Test is a scree yuly test with an inher ent false negat luma rate. Liqui d-bas ed sampl ing may decre ase, but will not elimi davian, false negat luma resul ts. A negat luma resul t does not precl ude the prese nce and/o r devel opmen t of disea se, since the prese nce of abnor mal cells in the sampl e depen ds on the locat ion of the lesio n and sampl ing techn ique. Hugh nued regul ar abida emery is the best metho d of cance r preve ntion . If repor shea cytol ogic findi ng do not corre late with physi nilda and/o r histo rical findi ngs, furth er inves tigat ion is recom alma delia d, as clini mak [place] nted. Not Available [facility] (Lab) [address], [place], [address], 02/06/2023 17:40:22 02/05/20 24 02/05/2024 IMAGE GUIDE D PAP AND HPV REGAR DLESS image guided Pap, HPV regardless of Pap result SEE RESULT S BELOW CASE REPOR T: Cytol ogy Gynec ologi nilda Repor t Case: [id number] Autho arjun g Provi linda: Dermo darrell, Candis , ANP, TENNIS PLAYER Colle cted: 02/04 1617 Order ing Locat ion: [place] Patho [place]y Recei aleisha: 02/05 0828 First Scree n: Maria D Young, CT Rescr een: Ann Bueno Speci men: Abida emery Pap - Image d, Cervi x STATE MENT OF ADEQU ACY: Satis facto ry for evalu ation Trans forma tion zone compo nent prese nt ----- ----- ----- ----- ----- ----- ----- ----- ----- ----- ----- ----- ----- ----- ----- ----- ----- ---- FINAL DIAGN OSIS: Negat luma for Intra epith elial Jovanna cuellar or Rodger gan ([facility]) . Nils joseph by Ann Bueno on 02/14 at 3:13 PM ----- ----- ----- ----- ----- ----- ----- ----- ----- ----- ----- ----- ----- ----- ----- ----- ----- ---- HPV RESUL TS: HPV mRNA E6/E7 : No HPV mRNA Detec shea NOTE: This high risk HPV mRNA assay detec ts fourt een high- risk HPV types (16, 18, 31, 33, 35, 39, 45, 51, 52, 56, 58, 59, 66, 68) witho ut diffe renti ation . COMME NT: This speci men was revie wed by a Cytot echno logis t and/o r Patho logis t (as indic ated in this repor t) after evalu ation using the Thinp rep Imagi ng Syste m. CLINI NILDA INFOR MATIO N: Menst rual Statu s: LMP (if appli cable ): Clini nilda Histo ry/Pr eviou s Pap: Type of Neopl lizabeth (if appli cable ): Signi fican t Clini nilda Findi ngs: Other Histo ry: Hormo migel (if appli cable ): PAP EDUCA FRANCES L NOTE: The Pap Test is a scree yuly test with an inher ent false negat luma rate. Liqui d-bas ed sampl ing may decre ase, but will not elimi davian, false negat luma resul ts. A negat luma resul t does not precl ude the prese nce and/o r devel opmen t of disea se, since the prese nce of abnor mal cells in the sampl e depen ds on the locat ion of the lesio n and sampl ing techn ique. Hugh nued regul ar scree yuly is the best metho d of cance r preve ntion . If repor shea cytol ogic findi ng do not corre late with physi nilda and/o r histo rical findi ngs, furth er inves tigat ion is recom alma delia d, as clini mak [place] nted. Not Available [facility] (Lab) [address], [place], [address], 02/15/2024 16:17:24 Result Notes None recorded. Problems Name Problem SNOMED Code Status Onset Date Resolution Date Notes Provider Name and Address Organization Details Recorded Time Screenin g for malignan t neoplasm of rectum Completed 201212/26/2021 Screening for malignant neoplasms of the rectum;[facility] act[facility] 09:[facility]33 Adult health examinat ion Completed 201312/26/2021 Routine general medical examinati on at a health care facility; Practice ID: 0001 Gia ivy [facility] 2 09:34:33 Speciali zed medical examinat ion Completed 201312/26/2021 Routine gynecolog ical examinati on;Practi ce ID: 0001 [facility] 2 09:34:33 Screenin g for malignan t neoplasm of cervix Completed 201312/26/2021 Pap Smear;Pra ctice ID: 0001 Gia Clayton [facility] 2 09:34:[address] Concept Completed 201512/26/2021 Encntr for costumer exam (general) (routine) w/o abn findings; Practice ID: 0001 [facility] 2 09:34:33 Removal of intraute rine device Completed 201712/26/2021 Encounter for removal of intrauter ine contracep tive device;Pr actice ID: 0001 [facility] 2 09:34:34 Insertio n of intraute rine contrace ptive device Completed 201712/26/2021 Encounter for insertion of intrauter ine contracep tive device;Pr actice ID: 0001 [facility] 2 09:34:33 Pregnanc y test negative [id number] Completed 201712/26/2021 Encounter for test, result negative; Practice ID: 0001 Gia Clayton [facility] 2 09:34:33 Contrace ptive sheath status [id number] Completed 201712/26/2021 Encounter for routine checking of intrauter ine contracep dev;Pract ice ID: 0001 Gia [facility] 2 09:34:33 Clinical finding Completed 201712/26/2021 Presence of (intraute rine) contracep tive device;Re corded Elsewhere : No Locati on: [facility] So urce: EHR Chron ic: N Practic e ID: 0001 Bill able Time: 03:00:00 PM Gia [facility] 2 09:34:33 Screenin g for malignan t neoplasm of rectum Completed 201001/21/2013 Screening for malignant neoplasms of the rectum;Re corded Elsewhere : No Locati on: [facility] So urce: EHR Chron ic: N Practic e ID: 0001 Bill able Time: 10:00:00 AM Gia [facility] 2 09:34:33 Family planning surveill ance Completed 201212/26/2021 Contracep tive surveilla nce, unspecifi ed;Practi ce ID: 0001 Gia [facility] 2 09:34:[address] Concept Completed 201712/26/2021 Encntr for general adult medical exam w/o abnormal findings; Recorded Elsewhere : No Locati on: [facility] So urce: EHR Chron ic: N Practic e ID: 0001 Bill able Time: 03:00:00 PM Gia [facility] 2 09:34:33 Insertio n of intraute rine contrace ptive device Completed 201201/21/2013 INSERTION OF IUD;Recor ded Elsewhere : No Locati on: [facility] So urce: EHR Chron ic: N Practic e ID: 0001 Bill able Time: 01:00:00 PM [facility] 2 09:34:33 Screenin g for malignan t neoplasm of cervix Completed 201001/21/2013 Screening for malignant neoplasms of the cervix;Re corded Elsewhere : No Locati on: [facility] So urce: EHR Chron ic: N Practic e ID: 0001 Bill able Time: 10:00:00 AM Gia [facility] 2 09:34:33 Speciali zed medical examinat ion Completed 201001/21/2013 Gynecolog ical Examinati on;Record ed Elsewhere : No Locati on: [facility] So urce: EHR Chron ic: N Practic e ID: 0001 Bill able Time: 10:00:00 AM [facility]ia [facility] 2 09:34:33 Removal of intraute rine device Completed 201201/21/2013 REMOVAL OF IUD;Recor ded Elsewhere : No Locati on: [facility] So urce: EHR Chron ic: N Practic e ID: 0001 Bill able Time: 02:30:00 PM [facility] 2 09:34:34 Pregnanc y test negative [id number] Completed 201201/21/2013 examinati on or test, negative result;Re corded Elsewhere : No Locati on: [facility] So urce: EHR Chron ic: N Practic e ID: 0001 Bill able Time: 01:00:00 PM [facility] 2 09:34:33 Problem Notes None recorded. Procedures Surgical History Date Name Laterality Status Provider Name and Address Organization Details Recorded Time 02/03/20 23 Date of Last Pap Smear completed Vesna Saul [facility] 02/05/2024 16:30:03 01/17/20 23 Date of Last Mammogram completed Yesika Juarez [facility] 02/02/2023 13:44:25 12/27/19 21 completed [facility] 12/26/2021 11:51:15 02/16/20 20 colonoscopy completed Sarah Sequeira, [facility]- [address], [place], [address], [facility] 02/02/2023 13:57:39 12/22/19 06 section completed [facility] 12/26/2021 11:56:05 10/11/19 02 section completed [facility] 12/26/2021 11:55:56 Imaging Results None recorded. Procedure Notes None recorded. Medical Equipment None Reported. Allergies No known drug allergies Medications Name Sig Start Date Stop Date Status Note LastModified by Organization Details LastModified Time Mirena 21 mcg/24 hr (up to 8 years) 52 mg intrauter ine device 2017 active Prescrib ed Elsewher e: Yes Loca tion: [facility] odify By: lydia vazquezuntsamantha DateTime : 08/01/19 18 05:15:00 PM Not Available Not Available Not Available biotin 5 mg capsule 01/30 completed Prescrib ed Elsewher e: Yes Loca tion: [facility] odify By: yg vazquezuntsamantha DateTime : 04/24/19 13 02:30:00 PM Not Available Not Available Not Available spironola ctone 100 mg tablet TAKE 1 TABLET BY MOUTH DAILY active Not Available Not Available No t Available Heather Low Dose Aspirin 81 mg tablet,de layed release take 1 tablet by oral route every day active Prescrib ed Elsewher e: Yes Loca tion: [facility] odify By: dasia monteiro DateTime : 04/24/19 13 02:30:00 PM Not Available Not Available Not Available spironola ctone 25 mg tablet take 1 tablet by oral route every day 12/26 completed Prescrib ed Elsewher e: Yes Loca tion: Adriane colon [facility] odify By: [email or web address] Encount er DateTime : 01/11/20 12 10:30:00 AM Not Available Not Available Not Available levothyro xine 25 mcg tablet TAKE 1 TABLET BY MOUTH DAILY active Not Available Not Available No t Available tobramyci n 0.3 % eye drops 02/04 completed Not Available Not Available Not Available Glucosami ne 500 mg tablet active Prescrib ed Elsewher e: Yes Loca tion: Adriane colon [facility] odify By: paola landaverde DateTime : 10/30/19 11 10:23:31 AM Not Available Not Available Not Available gemfibroz il (bulk) powder 04/24 completed Prescrib ed Elsewher e: Yes Loca tion: Adriane colon [facility] odify By: dasia monteiro DateTime : 01/11/20 12 10:30:00 AM Not Available Not Available Not Available methylpre dnisolone 4 mg tablets in a dose pack FOLLOW PACKAGE DIRECTIO NS 02/04 completed Not Available Not Available Not Available rosuvasta tin 20 mg tablet active Not Available Not Available Not Available Crestor 5 mg tablet take 2 tablet (10MG) by oral route every day 11/22 completed Prescrib ed Elsewher e: Yes Loca tion: Adriane colon [facility] odify By: adonay beltre DateTime : 10/30/19 11 10:23:31 AM Not Available Not Available Not Available nitrofura ntoin monohydra te/macroc rystals 100 mg capsule TAKE 1 CAPSULE BY MOUTH TWICE A DAY FOR 7 DAYS 02/02 completed Not Available Not Available Not Available levocetir izine 5 mg tablet TAKE 1 TABLET BY MOUTH DAILY active Not Available Not Available No t Available Tirosint 13 mcg capsule take 1 capsule by oral route every day 02/04 completed Prescrib ed Elsewher e: Yes Loca tion: Adriane colon [facility] odify By: dasia monteiro DateTime : 01/21/20 13 10:30:00 AM Not Available Not Available Not Available Multi For Her 18 mg iron-600 mcg-40 mcg capsule active Prescrib ed Elsewher e: Yes Loca tion: Adriane colon [facility] odify By: paola landaverde DateTime : 10/30/19 11 10:23:31 AM Not Available Not Available Not Available Xhance 93 mcg/actua tion breath activated aerosol 02/04 completed Not Available Not Available Not Available Vitals Date Recorded Body height Body weight Body mass index (BMI) Systolic blood pressure Diastolic blood pressure Provider Name and Address Organization Details Last Updated DateTime 12/26/2021 157.48 cm 16406.19 g 29.1 kg/m2 122 mm[Hg] 76 mm[Hg] Gia Forrest [facility] 2 11:51:05 Date Recorded Body height Body mass index (BMI) Body weight Systolic blood pressure Diastolic blood pressure Provider Name and Address Organization Details Last Updated DateTime 02/02/2023 157.48 cm 29.1 kg/m2 24257.19 g 114 mm[Hg] 74 mm[Hg] Yesika Juarez [facility] 3 13:42:52 Date Recorded Body height Body mass index (BMI) Body weight Systolic blood pressure Diastolic blood pressure Provider Name and Address Organization Details Last Updated DateTime 02/05/2024 157.48 cm 28.9 kg/m2 21838.59 g 114 mm[Hg] 71 mm[Hg] Vesna Dorys [facility] 4 16:28:07 Social History Question Answer Notes LastModified by Organizat ion Details LastModified Time Tobacco Smoking Status Never Smoker Renetta ivy [facility] 02/02/2023 13:34:56 What Is Your Level Of Alcohol Consumption? Occasional Information not available 12/26/2021 How Many Years Have You Consumed Alcohol? 30 Information not available 12/26/2021 Are You Blind Or Do You Have Difficulty Seeing? No Information n ot available 12/26/2021 What Is Your Level Of Caffeine Consumption? Moderate Information not available 12/26/2021 How Much Tobacco Do You Chew? None Information not available 12/26/2021 In The 14 Days Before Symptom Onset, Have You Had Close Contact With A Laboratory-confirm ed COVID-19 While That Case Was Ill? No Information n ot available 02/02/2023 In The 14 Days Before Symptom Onset, Have You Had Close Contact With A Person Who Is Under Investigation For COVID-19 While That Person Was Ill? No Information not available 02/02/2023 Have You Been To An Area Known To Be High Risk For COVID-19? No Information not available 12/26/2021 Are You Deaf Or Do You Have Serious Difficulty Hearing? No Information not available 12/26/2021 What Type Of Diet Are You Following? REGULAR Information n ot available 12/26/2021 What Is The Highest Grade Or Level Of School You Have Completed Or The Highest Degree You Have Received? 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 No Information not available 12/26/2021 Do You Use Your Seat Belt Or Car Seat Routinely? Yes Information not available 12/26/2021 Do You Have Smoke And Carbon Monoxide Detectors In Your Home? Yes Information not available 12/26/2021 How Much Tobacco Do You Smoke? No Information not available 12/26/2021 Do You Feel Stressed (tense, Restless, Nervous, Or Anxious, Or Unable To Sleep At Night)? [id number] Information not available 12/26/2021 Do You Use Any Illicit Or Recreational Drugs? No Information not available 12/26/2021 Do You Use Sunscreen Routinely? Yes Information not available 12/26/2021 Have You Used IV Drugs? No Information not available 12/26/2021 Sex: Unknown Functional Status Question Answer Note LastModified by Organizat ion Details LastModified Time Do you have difficulty walking or climbing stairs? No [email or web address] Information not available 02/02/2023 Are you able to walk? YESWOREST Information not available 12/26/2021 Are you able to care for yourself? Yes [email or web address] Information not available 02/02/2023 Do you have difficulty dressing or bathing? No [email or web address] Information not available 02/02/2023 What is your exercise level? Moderate Information not available 12/26/2021 Mental Status None recorded. Family History Relationship Description Onset Age of this Age Resolved Age Notes LastModified by Organization Details LastModified Time Father Heart disease Not available 2021 11:54:23 Father Hypertensive disorder Not available 2021 11:54:43 Maternal Grandmother Heart disease Not available 2021 11:54:31 Maternal Grandmother Malignant tumor of breast Not available 2021 11:55:01 Paternal Grandmother Heart disease Not available 2021 11:54:35 Paternal Grandmother Diabetes mellitus Not available 2021 11:55:11 Mother Malignant tumor of ovary Not available 2021 11:54:52 Medical History Condition Response Other Y Acid Reflux (GERD) Y Anemia Y Thyroid Problems Y High Cholesterol Y Gynecological History Statement/Question Response Abnormal Pap N Date of Last Mammogram 01/16/2023 On BCP's at Conception? N STIs/STDs N Current Control Method IUD Age at First Child 29 Date of control 07/17/2017 Sexually Active? Y N/A Menses Monthly N Age of first menstrual cycle 12 Date of Last Pap Smear 02/02/2023 Sexual Problems? N Desired Control Method IUD LMP Unknown 12/26/2020 Obstetrics History GPAL:G 4 P 0 0 1 3 Type Value Spontaneous 1 Living 3 Total 4 Past Encounters Encounter ID Performer Location Encounter Start Date Encounter Closed Date Diagnosis/Indication Diagnosis SNOMED-CT Code Diagnosis ICD10 Code Diagnosis Note [id number] [facility] [address] [address] 12/26/2021 11:41:06 12/26/2021 12:37:43 Gynecologic examination [id number] Z01.419 Take Calcium with Vitamin D 12-1500mg daily. Do monthly self breast exams. It is advised to get annual flu shot in the fall and she could obtain at [facility] or [facility] care clinic. If you haven't received the Tdap vaccine in the last 10 years you should obtain one as well. Have mammogram yearly, bone density every 2-3 years and colonoscop y every 5-10 years depending on findings and history. Engage in daily exercise of low impact aerobic exercise 45-60 minutes 4-5 times weekly. Avoid tobacco and illicit drugs as well as using moderation with alcohol intake less than 1-2 8 oz beverages daily. This lifestyle behavior pattern will lead to less health conditions and longer life span. If BMI greater than 25 weight watchers or dietary consult advised. Questions have been answered. Patient appears to understand instructio ns, but if you have any further questions call or respond to this email Pap/hpv sent STD Screen declined Genetic Screen discussed Colon Screen PCP Dexa Screen PCP Routine Labs PCPMammo PCP WNL Mirena IUD prevents for up to 8 years, and also helps with heavy periods for up to 5 years in women who choose an IUD for control. [id number] Sarah Sequeira , [facility] [address] [address] 02/02/2023 13:34:21 02/02/2023 14:37:35 Gynecologic examination [id number] Z01.419 Z11.51 Take Calcium with Vitamin D 12-1500mg daily. Do monthly self breast exams. It is advised to get annual flu shot in the fall and she could obtain at [facility] or [facility] care clinic. If you haven't received the Tdap vaccine in the last 10 years you should obtain one as well. Have mammogram yearly, bone density every 2-3 years and colonoscop y every 5-10 years depending on findings and history. Engage in daily exercise of low impact aerobic exercise 45-60 minutes 4-5 times weekly. Avoid tobacco and illicit drugs as well as using moderation with alcohol intake less than 1-2 8 oz beverages daily. This lifestyle behavior pattern will lead to less health conditions and longer life span. If BMI greater than 25 weight watchers or dietary consult advised. Questions have been answered. Patient appears to understand instructio ns, but if you have any further questions call or respond to this email Pap/hpv sent (opts to send)STD Screen declinedGe netic Screen discussedC olon Screen PCPDexa Screen PCPRoutine Labs PCPMammo PCP WNL 2023A Mirena IUD prevents for up to 8 years, and also helps with heavy periods for up to 5 years in women who choose an IUD for control. [id number] Vesna Saul [place] [address] [address] 02/05/2024 16:17:41 02/05/2024 17:01:00 Gynecologic examination [id number] Z01.419 Annual gynecologi nilda exam performed. Patient will come back in a year unless there are new symptoms. Suggest Calcium with Vitamin D if not eating in diet. Patient advised to get annual flu shot. Recommend yearly physicals and perform monthly breast exams. Genetic testing is available for patients with family history of cancer. Engage in safe sexual practices, use condoms. Encouraged to have daily exercise. Avoid tobacco and illicit drugs, moderation of alcohol. If BMI greater than 25 dietary consult advised. If you have any questions please call or email. mammogram- order given for annual mammogram; pt to schedule. Pt states that she could not get into [facility] sooner than May 2024 for annual mammogram imaging. Discussed that patient may call other imaging facilities to try to get in sooner and order can be sent there. colon cancer screening - PCP UTD DEXA scan- PCP UTD Pap smear- pap w/ HPV collected laboratory evaluation - PCP STI testing - declined Screening mammography 24 [id number] Z12.31 Contracept ion care management [id number] Z30.9 Pt doing well with Mirena IUD.String s visible/in tact. Pt desires to keep IUD in place until expiration in 2025. Health Concerns Section Related Observation LastModified by Organization Detai ls LastModified Time None Recorded Concern Status LastModified by Organization Details LastModified Time None Recorded Advance Directives Directive None Recorded Payers Encounter Date Sequence Insurance Name Policy Number Policy Matt Covered Member ID Matt Member ID Guarantor Name 12/26/2021 1 [employer] - CHOICE (POS II) [id number] Kenny Chandler [id number] 8 Socorro Natash 02/02/2023 1 [employer] - CHOICE (POS II) [id number] Kenny Chandler [id number] Socorro Nabnay 02/05/2024 1 [employer] - CHOICE (POS II) [id number] Kenny Ramesh [id number] 8 Socorro Ramesh Notes Date Note Type Note Provider Name and Address Organization Details Recorded Time 12/26/2021 text/html Annual GYNReport ed bypatient.Menstrua l cycle:Normal menses (Amenorrheic on Mirena IUD) Urinary symptoms:No hematuria; No incontinence Vulva:No genital lesion Vagina:Normal vaginal discharge Breast:No breast pain; No breast lump; No nipple discharge Current Contraception:Sati sfied with current contraception; Intrauterine device (iud) Sexual complaints:No sexual complaints; No pain during intercourse; Normal libido Menopausal Symptoms:No menopausal symptoms; Normal vaginal lubrication Psychological symptoms:No depression; No anxiety; No PMDD Preventive measures:Encourage self breast examination; Encourage regular exercise; Encourage no tobacco use; Encourage regular mammograms starting age 40; Followed with yearly pap smears; Mammogram performed within the past year; Up to date on colonoscopy screening KIRAN Miranda [address], [place], [address], [facility] 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.Menopaus al Symptoms:no menopausal symptoms; normal vaginal lubrication Vaginal Bleeding:history of menopause having occurred; no history of post menopausal bleeding Urinary Symptoms:no hematuria; no incontinence; no nocturia; no urinary frequency Vulva:no genital lesion; no vulvar atrophy Vagina:normal vaginal discharge; no vaginal atrophy Breast:no breast lump; no nipple discharge; no breast pain Sexual Complaints:no sexual complaints Psychological Symptoms:no depression; no anxiety Preventive Measures:encourage regular mammograms starting age 40; encourage self breast examination; encourage regular exercise; encourage no tobacco use; mammogram performed within the past year; history of recent colonoscopy CLINTON Miranda [address], [place], [address], [facility] 02/02/2023 14:34:22 02/05/2024 text/html Annual GYNReport ed bypatient.History: no gynecologic complaints Menstrual cycle:IUD - no periods. Urinary symptoms:No hematuria; No incontinence Vulva:No genital lesion Vagina:Normal vaginal discharge Breast:No breast pain; No breast lump; No nipple discharge Current Contraception:Sati sfied with current contraception; Intrauterine device (iud) Sexual complaints:No sexual complaints; No pain during intercourse; Normal libido Menopausal Symptoms:No menopausal symptoms; Normal vaginal lubrication Psychological symptoms:No depression; No anxiety; No PMDD Preventive measures:Encourage self breast examination; Encourage regular exercise; Encourage no tobacco use; Encourage regular mammograms starting age 40; Needs to schedule mammogram; Up to date on colonoscopy screening Patient presents for annual well woman exam. Patient denies concerns today.Patient has Mirena IUD, doing well. No hot flashes or night sweats. Vesna Saul [facility] 02/05/2024 17:05:25 OBGyn Episode Ob Episode Information Episode Created Date Number of Fetuses Patient Bloodtype Patient rh Status Prepregnancy Weight lbs Domestic Partner Domestic Partner Phone Father Name Wireless Sales Manager Status 12/27/19 22 1 CLOSED Fetus Data First Name Last Name Admitted to NICU Weight (g) Sex Living Outcome Pediatric Complications Fetus ID Race Codes Race Delivery Type M [id number] Repeat Tobi Calculation Initial Tobi Date Initial Exam Date Initial Exam Provider Initial Ultrasound Date Last Menstrual Period Date Ultra Sound Weeks Gestation 0 Eighteen To Twenty Week Tobi Update Ultra Sound Date Fundal Height At Umbil Quickening Date Ultra Sound Latest Weeks Gestation Final Tobi Confirmed By Final Tobi Confirmed Date Final Tobi Date Ultra Sound Latest Days Gestation 0 0 Menstrual History Last Menstrual Date Menses Monthly On Bcp Conception Prior Menses Frequency Hcg Plus Date Menarche Onset Age Delivery Information Delivery Date Delivery Type Labor Anesthesia Weeks Gestation Incision Type Labor Labor Length Hrs Delivered By Post Complications Tubal Sterilization Discharge Date Comments 6 Discharge Information Feeding Method Contraceptive Method Maternal HG B and HCT Levels Ob Episode Information Episode Created Date Number of Fetuses Patient Bloodtype Patient rh Status Prepregnancy Weight lbs Domestic Partner Domestic Partner Phone Father Name Wireless Sales Manager Status 12/27/19 22 1 CLOSED Fetus Data First Name Last Name Admitted to NICU Weight (g) Sex Living Outcome Pediatric Complications Fetus ID Race Codes Race Delivery Type M [id number] Vaginal Delivery Tobi Calculation Initial Tobi Date Initial Exam Date Initial Exam Provider Initial Ultrasound Date Last Menstrual Period Date Ultra Sound Weeks Gestation 0 Eighteen To Twenty Week Tobi Update Ultra Sound Date Fundal Height At Umbil Quickening Date Ultra Sound Latest Weeks Gestation Final Tobi Confirmed By Final Tobi Confirmed Date Final Tobi Date Ultra Sound Latest Days Gestation 0 0 Menstrual History Last Menstrual Date Menses Monthly On Bcp Conception Prior Menses Frequency Hcg Plus Date Menarche Onset Age Delivery Information Delivery Date Delivery Type Labor Anesthesia Weeks Gestation Incision Type Labor Labor Length Hrs Delivered By Post Complications Tubal Sterilization Discharge Date Comments 1 Discharge Information Feeding Method Contraceptive Method Maternal HG B and HCT Levels Ob Episode Information Episode Created Date Number of Fetuses Patient Bloodtype Patient rh Status Prepregnancy Weight lbs Domestic Partner Domestic Partner Phone Father Name Wireless Sales Manager Status 12/27/19 22 1 CLOSED Fetus Data First Name Last Name Admitted to NICU Weight (g) Sex Living Outcome Pediatric Complications Fetus ID Race Codes Race Delivery Type M [id number] Primary Tobi Calculation Initial Tobi Date Initial Exam Date Initial Exam Provider Initial Ultrasound Date Last Menstrual Period Date Ultra Sound Weeks Gestation 0 Eighteen To Twenty Week Tobi Update Ultra Sound Date Fundal Height At Umbil Quickening Date Ultra Sound Latest Weeks Gestation Final Tobi Confirmed By Final Tobi Confirmed Date Final Tobi Date Ultra Sound Latest Days Gestation 0 0 Menstrual History Last Menstrual Date Menses Monthly On Bcp Conception Prior Menses Frequency Hcg Plus Date Menarche Onset Age Delivery Information Delivery Date Delivery Type Labor Anesthesia Weeks Gestation Incision Type Labor Labor Length Hrs Delivered By Post Complications Tubal Sterilization Discharge Date Comments 2 Discharge Information Feeding Method Contraceptive Method Maternal HG B and HCT Levels Ob Episode Information Episode Created Date Number of Fetuses Patient Bloodtype Patient rh Status Prepregnancy Weight lbs Domestic Partner Domestic Partner Phone Father Name Wireless Sales Manager Status 12/27/19 22 1 CLOSED Fetus Data First Name Last Name Admitted to NICU Weight (g) Sex Living Outcome Pediatric Complications Fetus ID Race Codes Race Delivery Type , Spontane ous [id number] Tobi Calculation Initial Tobi Date Initial Exam Date Initial Exam Provider Initial Ultrasound Date Last Menstrual Period Date Ultra Sound Weeks Gestation 0 Eighteen To Twenty Week Tobi Update Ultra Sound Date Fundal Height At Umbil Quickening Date Ultra Sound Latest Weeks Gestation Final Tobi Confirmed By Final Tobi Confirmed Date Final Tobi Date Ultra Sound Latest Days Gestation 0 0 Menstrual History Last Menstrual Date Menses Monthly On Bcp Conception Prior Menses Frequency Hcg Plus Date Menarche Onset Age Delivery Information Delivery Date Delivery Type Labor Anesthesia Weeks Gestation Incision Type Labor Labor Length Hrs Delivered By Post Complications Tubal Sterilization Discharge Date Comments 0 Discharge Information Feeding Method Contraceptive Method Maternal HG B and HCT Levels
--- OUTSIDE RECORDS SUMMARY | 2024-04-15 15:26 | XMS_ITS | Clinical Summary ---
Author Organization [facility] Address [address] [place] [address] Care Team Providers Care Harpooner Name Role Phone Hailey Tom MD Primary Care Provider [phone] [facility],non-owned Affiliates and Associated Physician Practices is amultiple site organization consisting of ambulatory clinics and hospital sitesin [place], [place], [place] and [place]. This disclosure is being madepursuant to the Care Everywhere program and may not contain all information available regarding this patient. Last updated 17.[facility] Allergies No known active allergies Medications * Be aware that medications may not be up to date on this document. Alwaysverify current medications with the patient. Medication Sig Dispensed Refills Start Date End Date Status aspirin (ASPIRIN) 81 MG tablet Take 81 mg by mouth DAILY. 10/27/2015 Active levothyroxine (SYNTHROID) 25 MCG tablet Take 1 tablet by mouth. 10/27/2015 Active levonorgestrel (MIRENA, 52 MG,) 20 MCG/24HR IUD 07/31/2017 Active minoxidil (ROGAINE EXTRA STRENGTH) 5 % foam Apply to affected area once daily Active Misc Natural Products (OSTEO BI-FLEX ADV TRIPLE ST) TABS Take by mouth 2 times daily Active multivitamins (ONE A DAY) capsule Take 1 capsule by mouth once daily Active spironolactone (ALDACTONE) 100 MG tablet Take 1 tablet by mouth once daily 01/06/2020 Active rosuvastatin (CRESTOR) 20 MG tablet Take 1 tablet by mouth at bedtime 08/28/2020 Active Active Problems Problem Noted Date Diagnosed Date Other melanin hyperpigmentation 10/27/2015 Lentigines 10/27/2015 Immunizations Name Administration Dates Next Due INFLUENZA VACCINE 12/27/2018 Family History Medical History Relation Name Comments Cancer - Skin, Melanoma Neg Hx Cancer - Skin, Non Melanoma Neg Hx Social History Tobacco Use Types Packs/Day Years [...] Health Maintenance Due Date Last Done Comments COLOGUARD (AGES 45-75) - COL ON CA SCREENING 1970 COLON MONITORING 1970 COLONOSCOPY - COLON CA SCREENING 1970 CT COLONOGRAPHY - COLON CA SCREENING 1970 Colorectal Cancer Screening 1970 FIT - COLON CA SCREENING 1970 FLEX SIG - COLON CA SCREENING 1970 MAMMOGRAM 1970 PAP SMEAR 1970 HIV SCREENING 1985 HEPATITIS C SCREENING 06/11/1988 DTAP/TDAP/TD VACCINES (1 - Tdap) 1989 HEPATITIS B VACCINE (1 of 3 - 19+ 3-dose series) 1989 PNEUMOCOCCAL VACCINE 50+ (1 of 1 - PCV) 2020 ZOSTER VACCINE (1 of 2) 2020 COVID-19 VACCINE (1 - 2023-2 5 season) 2023 INFLUENZA VACCINE (#1) 2023 12/27/2018 DEPRESSION SCREENING 03/19/2024 HIB VACCINE Aged Out No longer eligi ble based on patient's age to complete this topic HPV VACCINE Aged Out No longer eligi ble based on patient's age to complete this topic MENINGOCOCCAL (Group B) VACCINE Aged Out No longer eligible based on patient's age to complete this topic MENINGOCOCCAL VACCINE Aged Out No ruslan del eligible based on patient's age to complete this topic PNEUMOCOCCAL VACCINE Aged Out No long er eligible based on patient's age to complete this topic Care Teams Harpooner Relationship Specialty Start Date End Date Hailey Tom MD [address] [place] [address] PCP - General 09/24/15
--- OUTSIDE RECORDS SUMMARY | 2024-04-15 15:26 | XMS_ITS | CONTINUITY OF CARE DOCUMENT ---
Author Name [email or web address] Address Unknown Organization [facility] Address [address] [place] [address] Phone [phone] Care Team Providers Care Cloth Finisher Name Role Phone Jay VIVAS, Abel Unavailable VERENA MASSEY MD Unavailable [phone] WILFREDO VIVAS, SANJUANA Staley Unavailable [phone] PROBLEMS Condition Status Date Provider Notes Cardiovascular screening active Mariam Rivera INS[employer]ANCE PROVIDERS Payer name Policy type / Coverage type [employer] party ID SELF PAY TREATMENT PLAN Date Name CT, Coronary Calcium Score CT, Coronary Calcium Score HISTORY OF PROCEDURES Procedure Date Procedure Name Provider Procedure Notes S tatus CT- Coronary CA score Abel Thompson MD completed CT- Coronary CA score Abel Thompson MD completed
--- OUTSIDE RECORDS SUMMARY | 2024-04-15 15:26 | XMS_ITS | Referral Summary ---
Author Organization [facility] Address [address] [place] [address] Care Team Providers Care Hogshead Cooper Name Role Phone Hailey Tom MD Primary Care Provider [phone] [facility],non-owned Affiliates and Associated Physician Practices is amultiple site organization consisting of ambulatory clinics and hospital sitesin [place], [place], [place] and [place]. This disclosure is being madepursuant to the Care Everywhere program and may not contain all information available regarding this patient. Last updated 17.[facility] Allergies No known active allergies Medications * [...] Administration Dates Next Due INFLUENZA VACCINE 12/27/2018 Social History Tobacco Use Types Packs/Day Years Used Date Smoking Tobacco: Never Smokeless Tobacco: Never Alcohol Use Standard Drinks/Week Comments Yes 0 (1 standard drink = 0.6 oz pur e alcohol) socially Sex and Gender Information Value Date Recorded Sex Assigned at Not on file Gender Identity Not on file Sexual Orientation Not on file Plan of Treatment Not on file Care Teams Hogshead Cooper Relationship Specialty Start Date End Date Hailey Tom MD [address] [place] [address] PCP - General 09/24/15
== END 2024-04-15 14:56 | disposition home or self-care (01) ==
PROVIDERS: PCP Family Medicine; Visit Provider Family Medicine
DX: Z12.31 Encounter for screening mammogram for malignant neoplasm of breast (principal)
CPT/HCPCS: 77063; 77067

== ENCOUNTER 2024-06-04 19:37 | Emergency (ER) | payer OTHER, SELFPAY ==
[2024-06-04 19:44] VITALS: BP 135/75; PULSE 81; RESP 16; TEMP 36.4; O2SAT 98
--- NOTE | 2024-06-04 19:55 | ECG_ITS ---
Test Date: 2024-06-04 19:02:17 Measurements Intervals [place] Rate: 74 P: 48 WI: 130 QRS: 75 QRSD: 90 T: 27 QT: 364 QTc: 405 Interpretive Statements SINUS RHYTHM POSSIBLE LEFT ATRIAL ENLARGEMENT [-0.1mV P WAVE IN V1/V2] No previous ECG available for comparison Electronically Signed On 06-05-2024 09:16:01 CDT by Erwin Miramontes M.D.
--- NOTE | 2024-06-04 19:56 | ED.GENADULT ---
HPI - General Adult General Chief complaint: Unspecified Stated complaint: CHEST BURNING Source: patient Mode of arrival: ambulatory Limitations: no limitations History of Present Illness HPI narrative: 53-year-old female presented for complaint of midsternal burning sensation intermittently for 2 days. Denies chest pain states it is a burning. Initially she felt the symptom while walking her dog, and states tonight she felt the pain while she was playing tennis. She continued to play for an hour after onset. She denies any associated symptoms such as palpitations, dizziness, sob, nausea, vomiting, pain radiating into neck, jaw, arm or back. denies any specific alleviating factors. Patient has been taking Tums for the symptoms since onset. Endorses a family history of early cardiac in family (father from ND 40; brother had ND age 50 alive) follows with Dr Bonilla cardiology. Related Data Home Medications ?Medication ?Instructions ?Recorded ?Confirmed ?Last Taken ?Type aspirin 81 mg tablet,delayed 81 mg PO DAILY 05/21/19 12/14/23 01/27/21 History release (Adult Low Dose Aspirin) glucosamine-chondroitin 250 mg-200 1 tablet PO BID 09/10/19 12/14/23 01/27/21 History mg tablet (Osteo Bi-Flex) levonorgestrel (Mirena) 1 device intrauterine ONCE 09/10/19 12/14/23 01/27/21 History minoxidil 5 % topical foam 5 % topical DAILY 09/10/19 12/14/23 01/27/21 History (Rogaine) multivitamin 1 tablet PO DAILY 09/10/19 12/14/23 01/27/21 History rosuvastatin 20 mg tablet 20 mg PO DAILY 08/13/20 12/14/23 01/27/21 History Allergies Allergy/AdvReac Type Severity Reaction Status Date / Time No Known Allergies Allergy Verified 06/04/24 19:54 Review of Systems Review of Systems: CONSTITUTIONAL: Denies body aches, fever, chills, or sweats. CARDIOVASCULAR: reports chest pain, Denies palpitations, or edema. RESPIRATORY: Denies cough or dyspnea. GASTROINTESTINAL: Denies abdominal pain, nausea, vomiting, or diarrhea. SKIN: Denies rash MUSCULOSKELETAL: Denies back pain, joint pain, or myalgia. NEUROLOGIC: Denies headache, numbness, tingling, or weakness. All systems reviewed & are unremarkable except as noted in HPI and below PMFSH Past Medical History Medical History Female pattern hair loss Hyperlipidemia, unspecified Hypothyroidism, unspecified Surgical History Surgical History Hx of section 2001 & 2005 Family History Family History Father Hypertension, Onset Age: 40 Cerebrovascular accident, Onset Age: 40 Family history of coronary artery disease, Onset Age: 40 Patient's father is , Onset Age: 40 Mother Family history of malignant neoplasm of ovary Patient's mother is , Onset Age: 40 Social History Social History Smoking status: Never smoker Second hand tobacco smoke exposure: No Alcohol intake: current Drinks per week: 1 Alcohol use details: social Substance use: never Substance use type: does not use Current Housing: Decline to Answer Concerned About Future Housing: Decline to Answer Difficulty Paying Gas/Electric Bills: Decline to Answer Difficulty Paying for Meds: Decline to Answer Currently Unemployed: Decline to Answer Education: Decline to Answer Difficulty w/ Childcare or Family Care: Decline to Answer Living arrangements: with family Gender identity (if verbalized by the patient): Female Sexual Orientation (if Verbalized by the Patient): Straight or Heterosexual Spiritual care concerns: No Agree to blood products: Yes Comments At time of signature, I have reviewed and agree with nursing past medical, surgical, social and family history unless otherwise noted. Please see nursing chart for further information. There is no relevant family history pertinent to the presenting complaint Exam Narrative: GENERAL: Well-appearing, well-nourished, and in no acute distress. ENT: Mucous membranes pink and moist. CHEST: No respiratory distress. Clear to auscultation. HEART: Regular rate and rhythm. No murmur appreciated. Normal peripheral pulses. ABDOMEN: Soft, nontender, nondistended, normal active bowel sounds. EXTREMITIES: Normal range of motion. No edema. SKIN: Warm, dry, no rash. Capillary refill normal. Normal skin turgor. NEURO: No focal deficits. Alert and oriented x3. Gait steady. PSYCH: Normal affect. No signs of depression or anxiety. Course Course Emergency Course: Patient is aware of diagnosis, understands and agrees to treatment plan. Anticipatory guidance given. Patient agrees to follow-up as directed and is aware of reasons to seek care at the emergency department. Portions of this record may have been created with voice recognition software Level of Care: Express Care Visit Vital Signs Vital signs: Vital Signs Temperature 97.5 F L 06/04/24 19:44 Pulse Rate 81 06/04/24 19:44 Respiratory Rate 16 06/04/24 19:44 Blood Pressure 135/75 06/04/24 19:44 Pulse Oximetry 98 06/04/24 19:44 Temperature 97.5 F L 06/04/24 19:44 Pulse Rate 81 06/04/24 19:44 Respiratory Rate 16 06/04/24 19:44 Blood Pressure 135/75 06/04/24 19:44 Pulse Oximetry 98 06/04/24 19:44 Transfer Transfered to: [facility] Transportation: Other (Private vehicle) Transfer rationale: Pt is agreeable to transfer. Requests transfer to [facility] via private vehicle. Risks of transportation reviewed with pt including injury, worsening of condition and . v/u. will be driving pt; Report called to hospital, spoke with Candis Reyna PA-C accepting physician. Pt is in stable condition at time of transfer. Advised to remain NPO and go directly to the hospital. Medical Decision Making MDM Narrative Medical decision making narrative: Patient presenting with chest pain intermittently for 2 days, family history of cardiac disease. Advised ER transfer. EKG normal sinus rhythm, VSS. Differential Diagnosis Differential Diagnosis: STEMI, AAA, PE, pneumothorax, cardiac tamponade, esophageal rupture, pneumonia, GERD, musculoskeletal pain, endocarditis, pericarditis, URI, bronchitis, anxiety, cocaine related ischemia. Vital Signs Vital Signs: Vital Signs Temperature 97.5 F L 06/04/24 19:44 Pulse Rate 81 06/04/24 19:44 Respiratory Rate 16 06/04/24 19:44 Blood Pressure 135/75 06/04/24 19:44 Pulse Oximetry 98 06/04/24 19:44 Temperature 97.5 F L 06/04/24 19:44 Pulse Rate 81 06/04/24 19:44 Respiratory Rate 16 06/04/24 19:44 Blood Pressure 135/75 06/04/24 19:44 Pulse Oximetry 98 06/04/24 19:44 reviewed ECG Data EKG #1: Attestation: I personally reviewed and interpreted this ECG as follows: (NSR rate74 GA 130, QRS 90, QT/QTC 364/391) ECG completion date: 06/04/24 ECG completion time: 20:02 Prior ECG tracings: not available for review EKG Interpretation: normal rate and sinus rhythm Discharge Plan Discharge Clinical Impression: Chest pain Qualifiers: Chest pain type: unspecified Qualified Code(s): R07.9 - Chest pain, unspecified Patient Disposition: Acute Care Hospital Condition: Stable Patient Language: Fijian Prescriptions: No Action glucosamine-chondroitin [Osteo Bi-Flex] 250-200 mg tablet 1 tablet PO BID Rx Instructions: give after food/meal multivitamin Tablet 1 tablet PO DAILY Mirena 20 mcg/24 hours (5 yrs) 52 mg intrauterine device 1 device I-UTERINE ONCE Rx Instructions: as a single dose minoxidil [Rogaine] 5 % foam 5 % TOPICAL DAILY rosuvastatin 20 mg tablet 20 mg PO DAILY methylprednisolone [Medrol (Riaz)] 4 mg tablets,dose pack See Rx Instructions PO PER PKG DIR Qty: 21 0RF Rx Instructions: PO PER PKG DIR aspirin [Adult Low Dose Aspirin] 81 mg tablet,delayed release (DR/EC) 81 mg PO DAILY spironolactone 100 mg tablet See Rx Instructions .ROUTE .COMPLEX Qty: 90 1RF Dose Instruction: TAKE 1 TABLET BY MOUTH DAILY Rx Instructions: TAKE 1 TABLET BY MOUTH DAILY levocetirizine [Xyzal] 5 mg tablet 5 mg PO DAILY Qty: 90 1RF levothyroxine 25 mcg tablet See Rx Instructions .ROUTE .COMPLEX Qty: 90 3RF Dose Instruction: TAKE 1 TABLET BY MOUTH DAILY Rx Instructions: TAKE 1 TABLET BY MOUTH DAILY Follow-up/Referrals: Hailey Tom MD [Primary Care Provider] - Time of Disposition: 20:08
== END 2024-06-04 20:06 | disposition short-term general hospital (02) ==
PROVIDERS: Emergency Provider Nurse Practitioner Family; PCP Family Medicine
DX: R07.9 Chest pain, unspecified (principal); E78.5 Hyperlipidemia, unspecified; E03.9 Hypothyroidism, unspecified; Z79.82 Long term (current) use of aspirin; Z82.49 Family history of ischemic heart disease and other diseases of the circulatory system
CPT/HCPCS: 93005; 99213; G0463

== ENCOUNTER 2024-06-04 20:23 | Emergency (ER) | payer OTHER, SELFPAY ==
--- NOTE | ~2024-06-04 | XR_ITS ---
CHEST RADIOGRAPH, PA AND LATERAL CLINICAL HISTORY: CP, BURNING SENSATION . COMPARISON: 10/31/2016 TECHNIQUE: PA and lateral views of the chest. FINDINGS The cardiomediastinal silhouette is unremarkable. The lungs are clear. Visualized osseous structures and soft tissues are unremarkable. IMPRESSION: No focal infiltrate or effusion. Reviewed, dictated and finalized at location A.
--- OUTSIDE RECORDS SUMMARY | 2024-06-04 20:25 | XMS_ITS | Clinical Summary ---
Author Organization [facility] Address [address] [place] [address] Care Team Providers Care Flag Car Driver Name Role Phone Hailey Tom MD Primary Care Provider Source Comments [facility],non-owned Affiliates and Associated Physician Practices is amultiple site organization consisting of ambulatory clinics and hospital sitesin [place], [place], [place] and [place]. This disclosure is being madepursuant to the Care Everywhere program and may not contain all information available regarding this patient. Last updated 17.[facility] Allergies No known active allergies Medications * [...] to complete this topic MENINGOCOCCAL (Group B) VACC INE SHARED DECISION-MAKING Aged Out No longer eligibl e based on patient's age to complete this topic MENINGOCOCCAL GROUPS A/C/Y/W VACCINE Aged Out No longer eligible b ased on patient's age to complete this topic PNEUMOCOCCAL VACCINE Aged Out No long er eligible based on patient's age to complete this topic Care Teams Flag Car Driver Relationship Specialty Start Date End Date Hailey Tom MD [address] [place] [address] [facility] - General 09/24/15
--- OUTSIDE RECORDS SUMMARY | 2024-06-04 20:25 | XMS_ITS | Encounter Summary ---
Author Organization [facility] Address 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
--- OUTSIDE RECORDS SUMMARY | 2024-06-04 20:25 | XMS_ITS | Data Portability ---
Author Organization [facility] Address [address] [place] [address] Care Team Providers Care Lead Business Analyst Name Role Phone SANJUANA VILLALOBOS Primary Care Provider [phone] Assessment Encounter Date Assessment Date Assessment LastModified [...] a year unless there are new symptoms. [email or web address] Not available 02/05/2024 16:21:37 Plan of Treatment Reminders Order Date Submit Date Provider Last Modified By Organization Details Last Modified Time Details Appointments None recorded. Lab pap, IG + HR HPV - HPV regardless but if HPV is positive need subtyping 16,18/45 2023 024 [facility] (Lab), [address], [place], [address], 16:17:24 Referral None recorded. Procedures None recorded. [...] linda: Enrico Tamez Colle cted: 12/26 1717 COMMISSION AUDITOR Order ing Locat ion: [place] Patho logy [...] as clini mak [place] nted. Not Available [facility] Infectious Disease [address] [place], [address], 01/01/2022 19:18:11 02/03/20 23 02/02/2023 IMAGE GUIDE D PAP AND HPV REGAR DLESS image guided Pap, HPV regardless of Pap result SEE RESULT S BELOW CASE REPOR T: Cytol ogy Gynec ologi nilda Repor t Case: [id number] Autho arjun lenz Provi linda: Enrico Tamez Colle cted: 02/02 1457 COMMISSION AUDITOR Order ing Locat ion: [place] Patho logy [...] as clini mak [place] nted. Not Available [facility] (Lab) [address], [place], [address], 02/06/2023 17:40:22 02/05/20 24 02/05/2024 IMAGE GUIDE D PAP AND HPV REGAR DLESS image guided Pap, HPV regardless of Pap result SEE RESULT S BELOW CASE REPOR T: Cytol ogy Gynec ologi nilda Repor t Case: [id number] Autho arjun g Provi linda: Dermo darrell, Candis , ANP, QUALITY COMPLIANCE COORDINATOR Colle cted: 02/04 1617 Order ing Locat [...] epith elial Jovanna cuellar or Rodger gan ([facility]) . Nils joseph by Ann Bueno [...] as clini mak [place] nted. Not Available [facility] (Lab) [address], [place], [address], 02/15/2024 16:17:24 Result Notes None recorded. Problems Name Problem SNOMED Code Status Onset Date Resolution Date Notes Provider Name and Address Organization Details Recorded Time Screenin g for malignan t neoplasm of rectum Completed 201212/26/2021 Screening for malignant neoplasms of the rectum;Pr actice ID: 0001 [facility] 2 09:34:33 Adult health examinat ion Completed 201312/26/2021 Routine general medical examinati on at a health care facility; Practice ID: 0001 Gia ivy [facility] 2 09:34:33 Speciali zed medical examinat ion Completed 201312/26/2021 Routine gynecolog ical examinati on;Practi ce ID: 0001 Gia [facility] 2 09:34:33 Screenin g for malignan t neoplasm of cervix Completed 201312/26/2021 Pap Smear;Pra ctice ID: 0001 Gia Clayton [facility] 2 09:34:[address] Concept Completed 201512/26/2021 Encntr for immersion metalcleaner exam (general) (routine) w/o abn findings; Practice ID: 0001 Gia Clayton [facility] 2 09:34:33 Removal of intraute rine device Completed 201712/26/2021 Encounter for removal of intrauter ine contracep tive device;Pr actice ID: 0001 Gia Clayton [facility] 2 09:34:34 Insertio n of intraute rine contrace ptive device Completed 201712/26/2021 Encounter for insertion of intrauter ine contracep tive device;Pr actice ID: 0001 Gia Clayton [facility] 2 09:34:33 Pregnanc y test negative [id number] Completed 201712/26/2021 Encounter for test, result negative; Practice ID: 0001 Gia Clayton [facility] 2 09:34:33 Contrace ptive sheath status [id number] Completed 201712/26/2021 Encounter for routine checking of intrauter ine contracep dev;Pract ice ID: 0001 Gia Clayton [facility] 2 09:34:33 Clinical finding Completed 201712/26/2021 Presence of (intraute rine) contracep tive device;Re corded Elsewhere : No Locati on: [facility] So urce: EHR Chron ic: N Practic e ID: 0001 Bill able Time: 03:00:00 PM Gia Clayton [facility] 2 09:34:33 Screenin g for malignan t neoplasm of rectum Completed 201001/21/2013 Screening for malignant neoplasms of the rectum;Re corded Elsewhere : No Locati on: [facility] So urce: EHR Chron ic: N Practic e ID: 0001 Bill able Time: 10:00:00 AM Gia Clayton [facility] 2 09:34:33 Family planning surveill ance Completed 201212/26/2021 Contracep tive surveilla nce, unspecifi ed;Practi ce ID: 0001 Gia [facility] 2 09:34:[address] Concept Completed 201712/26/2021 Encntr for general adult medical exam w/o abnormal findings; Recorded Elsewhere : No Locati on: [facility] So urce: EHR Chron ic: N Practic e ID: 0001 Bill able Time: 03:00:00 PM Gia Clayton [facility] 2 09:34:33 Insertio n of intraute rine contrace ptive device Completed 201201/21/2013 INSERTION OF IUD;Recor ded Elsewhere : No Locati on: [facility] So urce: EHR Chron ic: N Practic e ID: 0001 Bill able Time: 01:00:00 PM Gia Clayton [facility] 2 09:34:33 Screenin g for malignan t neoplasm of cervix Completed 201001/21/2013 Screening for malignant neoplasms of the cervix;Re corded Elsewhere : No Locati on: [facility] So urce: EHR Chron ic: N Practic e ID: 0001 Bill able Time: 10:00:00 AM Gia Clayton [facility] 2 09:34:33 Speciali zed medical examinat ion Completed 201001/21/2013 Gynecolog ical Examinati on;Record ed Elsewhere : No Locati on: [facility] So urce: EHR Chron ic: N Practic e ID: 0001 Bill able Time: 10:00:00 AM Gia Clayton [facility] 2 09:34:33 Removal of intraute rine device Completed 201201/21/2013 REMOVAL OF IUD;Recor ded Elsewhere : No Locati on: [facility] So urce: EHR Chron ic: N Practic e ID: 0001 Bill able Time: 02:30:00 PM Gia Clayton [facility] 2 09:34:34 Pregnanc y test negative [id number] Completed 201201/21/2013 examinati on or test, negative result;Re corded Elsewhere : No Locati on: [facility] So urce: EHR Chron ic: N Practic e ID: 0001 Bill able Time: 01:00:00 PM Gia Clayton [facility] 2 09:34:33 Problem Notes None recorded. Procedures Surgical History Date Name Laterality Status Provider Name and Address Organization Details Recorded Time 02/03/20 23 Date of Last Pap Smear completed Vesna Saul [facility] 02/05/2024 16:30:03 01/17/20 23 Date of Last Mammogram completed Yesika Juarez [facility] 02/02/2023 13:44:25 12/27/19 21 completed [facility] 12/26/2021 11:51:15 02/16/20 20 colonoscopy completed Sarah Sequeira, [facility]- [address], [place], [address], [facility] 02/02/2023 13:57:39 12/22/19 06 section completed [facility] 12/26/2021 11:56:05 10/11/19 02 section completed [facility] 12/26/2021 11:55:56 Imaging Results None recorded. Procedure Notes None recorded. Medical Equipment None Reported. Allergies No known drug allergies Medications Name Sig Start Date Stop Date Status Note LastModified by Organization Details LastModified Time Mirena 21 mcg/24 hr (up to 8 years) 52 mg intrauter ine device 2017 active Prescrib ed Elsewher e: Yes Loca tion: [facility] odify By: lydia vazquezuntsamantha DateTime : 08/01/19 18 05:15:00 PM Not Available Not Available Not Available biotin 5 mg capsule 01/30 completed Prescrib ed Elsewher e: Yes Loca tion: [facility] odify By: yg vazquezuntsamantha DateTime : 04/24/19 13 02:30:00 PM Not Available Not Available Not Available spironola ctone 100 mg tablet TAKE 1 TABLET BY MOUTH DAILY active Not Available Not Available No t Available Heather Low Dose Aspirin 81 mg tablet,de layed release take 1 tablet by oral route every day active Prescrib ed Elsewher e: Yes Loca tion: [facility] odify By: dasia monteiro DateTime : 04/24/19 13 02:30:00 PM Not Available Not Available Not Available spironola ctone 25 mg tablet take 1 tablet by oral route every day 12/26 completed Prescrib ed Elsewher e: Yes Loca tion: Adriane colon [facility] odify By: [email or web address] Encount er DateTime [...] Elsewher e: Yes Loca tion: Adriane colon [facility] odify By: paola landaverde DateTime : 10/30/19 11 10:23:31 AM Not Available Not Available Not Available gemfibroz il (bulk) powder 04/24 completed Prescrib ed Elsewher e: Yes Loca tion: Adriane colon [facility] odify By: dasia monteiro DateTime : [...] Elsewher e: Yes Loca tion: Adriane colon [facility] odify By: adonay beltre DateTime : [...] Elsewher e: Yes Loca tion: Adriane colon [facility] odify By: dasia monteiro DateTime : 01/21/20 13 10:30:00 AM Not Available Not Available Not Available Multi For Her 18 mg iron-600 mcg-40 mcg capsule active Prescrib ed Elsewher e: Yes Loca tion: Adriane colon [facility] odify By: paola landaverde DateTime : 10/30/19 11 10:23:31 AM Not Available Not Available Not Available Xhance 93 mcg/actua tion breath activated aerosol 02/04 completed Not Available Not Available Not Available Vitals Date Recorded Body height Body weight Body mass index (BMI) Systolic blood pressure Diastolic blood pressure Provider Name and Address Organization Details Last Updated DateTime 12/26/2021 157.48 cm 22857.19 g 29.1 kg/m2 122 mm[Hg] 76 mm[Hg] Gia Forrest [facility] 2 11:51:05 Date Recorded Body height Body mass index (BMI) Body weight Systolic blood pressure Diastolic blood pressure Provider Name and Address Organization Details Last Updated DateTime 02/02/2023 157.48 cm 29.1 kg/m2 28008.19 g 114 mm[Hg] 74 mm[Hg] Yesika Juarez [facility] 3 13:42:52 Date Recorded Body height Body mass index (BMI) Body weight Systolic blood pressure Diastolic blood pressure Provider Name and Address Organization Details Last Updated DateTime 02/05/2024 157.48 cm 28.9 kg/m2 35906.59 g 114 mm[Hg] 71 mm[Hg] Vesna Dorys [facility] 4 16:28:07 Social History Question Answer Notes LastModified by Organizat ion Details LastModified Time Tobacco Smoking Status Never Smoker Renetta ivy [facility] 02/02/2023 13:34:56 What Is Your Level [...] Or The Highest Degree You Have Received? 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 [id number] Information not available 12/26/2021 Do You Use Any Illicit Or Recreational Drugs? No Information not available 12/26/2021 Do You Use Sunscreen Routinely? Yes Information not available 12/26/2021 Have You Used IV Drugs? No Information not available 12/26/2021 Sex: Unknown Functional Status Question Answer Note LastModified by Organizat ion Details LastModified Time Do you have difficulty walking or climbing stairs? No [email or web address] Information not available 02/02/2023 Are you able to walk? YESWOREST Information not available 12/26/2021 Are you able to care for yourself? Yes [email or web address] Information not available 02/02/2023 Do you have difficulty dressing or bathing? No [email or web address] Information not available 02/02/2023 What is your [...] SNOMED-CT Code Diagnosis ICD10 Code Diagnosis Note [id number] [facility] [address] [address] 12/26/2021 11:41:06 12/26/2021 12:37:43 Gynecologic examination 81529833 Z01.419 Take Calcium with Vitamin D 12-1500mg daily. Do monthly self breast exams. It is advised to get annual flu shot in the fall and she could obtain at [facility] or [facility] care clinic. If you haven't [...] women who choose an IUD for control. [id number] Sarah Sequeira , [facility] [address] [address] 02/02/2023 13:34:21 02/02/2023 14:37:35 Gynecologic examination 53736878 Z01.419 Z11.51 Take Calcium with Vitamin D 12-1500mg daily. Do monthly self breast exams. It is advised to get annual flu shot in the fall and she could obtain at [facility] or [facility] care clinic. If you haven't [...] women who choose an IUD for control. [id number] Vesna Saul [facility] [address] [address] 02/05/2024 16:17:41 02/05/2024 17:01:00 Gynecologic examination 92580578 Z01.419 Annual gynecologi nilda exam performed. Patient [...] states that she could not get into [facility] sooner than May 2024 for annual mammogram imaging. Discussed that patient may call other imaging facilities to try to get in sooner and order can be sent there. colon cancer screening - PCP UTD DEXA scan- PCP UTD Pap smear- pap w/ HPV collected laboratory evaluation - PCP STI testing - declined Screening mammography 24 837175 Z12.31 Contracept ion care management 089201035 Z30.9 Pt doing well with Mirena IUD.String [...] 12/26/2021 1 [employer] - CHOICE (POS II) [id number] Kenny Chandler [id number] 8 Socorro Natash 02/02/2023 1 [employer] - CHOICE (POS II) [id number] Kenny Chandler [id number] 8 Socorro Nabnay 02/05/2024 1 AETNA - CHOICE (POS II) [id number] Kenny Ramesh [id number] 8 Socorro Ramesh Notes Date Note Type [...] colonoscopy screening KIRAN Miranda [address], [place], [address], [facility] 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 02/02/2023 14:34:22 02/05/2024 text/html Annual [...] hot flashes or night sweats. Vesna Saul [facility] 02/05/2024 17:05:25 OBGyn Episode Ob Episode Information Episode Created Date Number of Fetuses Patient Bloodtype Patient rh Status Prepregnancy Weight lbs Domestic Partner Domestic Partner Phone Father Name Broadcast Producer Status 12/27/19 22 1 CLOSED Fetus Data First Name Last Name Admitted to NICU Weight (g) Sex Living Outcome Pediatric Complications Fetus ID Race Codes Race Delivery Type M 85475 Repeat Tobi Calculation Initial Tobi Date Initial [...] Domestic Partner Domestic Partner Phone Father Name Broadcast Producer Status 12/27/19 22 1 CLOSED Fetus Data First Name Last Name Admitted to NICU Weight (g) Sex Living Outcome Pediatric Complications Fetus ID Race Codes Race Delivery Type M 76750 Vaginal Delivery Tobi Calculation Initial Tobi Date [...] Domestic Partner Domestic Partner Phone Father Name Broadcast Producer Status 12/27/19 22 1 CLOSED Fetus Data First Name Last Name Admitted to NICU Weight (g) Sex Living Outcome Pediatric Complications Fetus ID Race Codes Race Delivery Type M 52699 Primary Toib Calculation Initial Tobi Date Initial Exam Date [...] Domestic Partner Domestic Partner Phone Father Name Broadcast Producer Status 12/27/19 22 1 CLOSED Fetus Data First Name Last Name Admitted to NICU Weight (g) Sex Living Outcome Pediatric Complications Fetus ID Race Codes Race Delivery Type , Spontane ous 74257 Tobi Calculation Initial Tobi Date Initial Exam [...]
--- OUTSIDE RECORDS SUMMARY | 2024-06-04 20:25 | XMS_ITS | Continuity of Care Document ---
Author Organization [facility] Address [address] [place] [address] Phone Care Team Providers Care Coffee Maker Name Role Phone Osorio OD, Deny Unavailable Unavailable Procedures Procedure Date Cntct Lens Hydrophilic Toric Or Prism Ba llast Medical Tax Contact Lens Hydrophilic, Spherical [facility] Medical Contact Lens Check Contact Lens Check Contact Lens Check Contact Lens Check Contact Lens Check Contact Lens Check Contact Lens Hydrophilic, Spherical [facility] Eye Exam & Treatment Refraction Contact Lens Hydrophilic, Spherical [facility] Office/outpatient Visit, Est Office/outpatient Visit, Est Office/outpatient Visit, Est Eye Exam, New Patient Advance Directives Directive Yes / No Effective Date File Name No Information Encounters Encounter Description Practice Location Reason(s) For Visit Diagnoses Date Provider Providers Copied on Encounter [facility], [address], [place], [place], [id number], [place] tel:[phone] [facility] No Information Oct-2 6-201 0 Osorio OD Deny. [address], [place], [address], [place]. tel:[phone] [facility], [address], [place], [place], [address], [place] tel:[phone] [facility] No Information Apr-2 3-201 0 Osorio OD Deny. [address] , [address], [place], [place], [facility], [place]. tel:[phone] [facility], [address], [place], [place], [address], [place] tel:[phone] [facility] No Information Apr-0 8-201 0 Osorio OD Deny. [address], [place], [place], [facility], [place]. tel:[phone] [facility], [address], [place], [place], [address], [place] tel:[phone] [facility] No Information Mar-2 5-201 0 Osorio OD Deny. [address], [place], [facility], [place]. tel:[phone] [facility], [address], [place], [place], [address], [place] tel:[phone] [facility] No Information Mar-1 8-201 0 Osorio OD Deny. [address], [place], [facility], [place]. tel:[phone] [facility], [address], [place], [place], [address], [place] tel:[phone] [facility] No Information Mar-0 4-201 0 Osorio OD Deny. [address], [place], [address], [place]. tel:[phone] [facility], [address], [place], [place], [address], [place] tel:[phone] [facility] No Information Feb-1 9-201 0 Osorio OD Deny. [address], [place], [address], [place]. tel:[phone] [facility], [address] [place] [address] [address], [place], [place], [address], [place] tel:[phone] [facility] No Information 1-201 0 Osorio OD Deny. [address], [place], [facility], [place]. tel:[phone] [facility], [address] [place] [address] [address], [place], [place], [address], [place] tel:[phone] [facility] No Information 5-201 0 Osorio OD Deny. [address], [place], [facility], [place]. tel:[phone] [facility], [address] [place] [address] [address], [place], [place], [address], [place] tel:[phone] [facility] No Information 4-201 0 Osorio OD Deny. [address], [place], [facility], [place]. tel:[phone] [facility], [address] [place] [address] [address], [place], [place], [address], [place] tel:[phone] [facility] No Information 6-200 9 Osorio OD Deny. [address], [place], [address], [place]. tel:[phone] Office/outpat ient Visit, Est [facility], [address] [place] [address] [address], [place], [place], [address], [place] tel:[phone] [facility] No Information 0 5-200 9 Osorio OD Deny. [address] , [address], [place], [facility], . tel:[phone] Office/outpat ient Visit, [facility], [address], [place], [place], [address], tel:[phone] [facility] No Information Oct-1 5-200 9 Osorio OD Deny. [address] [facility] [address], [place], [facility], [place]. tel:[phone] Office/outpat ient Visit, [facility], [address], [place], [place], [address], tel:[phone] [facility] No Information Oct-0 8-200 9 Osorio OD Deny. [address] [facility] , [address], [place], [facility], . tel:[phone] [facility], [address], [place], [place], [address], tel:[phone] [facility] No Information Oct-0 2-200 9 Krishnasamy Juanito. [address] [facility] [address], [place], [facility], . tel:[phone] Family History Family Member Type Diagnosis Age At Onset No Information Payers Payer name Insurance type Covered alliance party ID Authoriza tion(s) No Information Social History [...]
--- OUTSIDE RECORDS SUMMARY | 2024-06-04 20:25 | XMS_ITS | Clinical Summary ---
Author Organization [facility] Address [address] [place] [address] Care Team Providers Care Pediatric Clinical Nurse Specialist Name Role Phone None, Provider MD Primary [...] on file Legal Sex Female 11:[address] REPORTER Gender Identity Not on file Sexual Orientation Not on file Last Filed Vital Signs Vital Sign Reading Time Taken Comments Blood Pressure 133/73 05/04/2022 1:[address] REPORTER Pulse 79 05/04/2022 1:[address] REPORTER Temperature 36.8 C (98.3 F) 05/04/2022 1:[address] REPORTER Respiratory Rate 16 05/04/2022 1:[address] REPORTER Oxygen Saturation 99% 05/04/2022 1:[address] REPORTER Inhaled Oxygen Concentration - - Weight 72.7 kg (160 lb 3.2 oz) 05/04/2022 1:[address] REPORTER Height 157.5 cm (5' 2 ) 05/04/2022 1:[address] REPORTER Body Mass Index 29.3 05/04/2022 1:[address] REPORTER Plan of Treatment Health Maintenance Due Date Last Done Comments Colorectal Cancer Screening Colonoscopy (10 Years) 1970 Annual Physical 1973 Hepatitis C 1988 DTaP, Tdap and Td Vaccines ( 1 - Tdap) 1989 Hepatitis B Vaccines (1 of 3 - 19+ 3-dose series) 1989 Cervical Cancer Screening Pa p with HPV Testing (Age 30 to 64) Every 5 Years 2000 Mammogram Screening 2010 Zoster Vaccines (1 of 2) 2020 COVID-19 Vaccine ( - 2023-2 5 season) 2023 Influenza Adult (#1) 2023 12/26/2018 Cervical Cancer Screening Pa p Smear (Age [...] age to complete this [place] [address] Care Teams Pediatric Clinical Nurse Specialist Relationship Specialty Start Date End Date None, Provider, MD PCP - General UNKNOWN PHYSICIAN SPECIALTY 05/04/22
--- OUTSIDE RECORDS SUMMARY | 2024-06-04 20:25 | XMS_ITS | Encounter Summary ---
Author Organization [facility] Address [address] [place] [address] Care Team Providers Care Funds Transfer Clerk Name Role Phone Hailey Tom MD Primary Care Provider [phone] Encounter Details Date Type Department Care Team (Late st Contact Info) Description 06/22/2020 Telephone [facility] [address] [place] [address] Dalia Aguayo, Social History Tobacco Use Types Packs/Day Years Used Date Smoking Tobacco: Never Smokeless Tobacco: Never Alcohol Use Standard Drinks/Week Comments Yes 1 (1 standard drink = 0.6 oz pur e alcohol) Comments Unknown Sex and Gender Information Value Date Recorded Sex Assigned at Not on file 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
--- OUTSIDE RECORDS SUMMARY | 2024-06-04 20:25 | XMS_ITS | Clinical Summary ---
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 Gender Identity Not on file Sexual Orientation Not on file Plan of Treatment Health Maintenance Due Date Last Done Comments DTAP/TDAP/TD VACCINES (1 - Tdap) 1989 HEPATITIS B VACCINES (1 of 3 - 19+ 3-dose series) 05/19 PAP SMEAR 2000 BREAST CANCER SCREENING 2010 COLORECTAL SCREENING 06/17/2015 Colorectal Cancer Screening 06/17/2015 FIT-DNA Q 3 years 06/17/2015 FIT/FOBT Q 1 year 06/17/2015 Flex Sig/CT Colonography Q 5 years 06/17/2015 ZOSTER VACCINE (1 of 2) 2020 INFLUENZA VACCINE (#1) 2023 Insurance [facility] [id number] [facility] Address: [facility] [id number] [place] [address]
--- OUTSIDE RECORDS SUMMARY | 2024-06-04 20:25 | XMS_ITS | CONTINUITY OF CARE DOCUMENT ---
Author Name [email or web address] Address Unknown Organization [facility] Address [address] [facility] [address] [place] [address] Phone [phone] Care Team Providers Care Plug Drill Operator Name Role Phone Jay VIVAS, Abel Unavailable [phone] VERENA MASSEY MD Unavailable [phone] WILFREDO VIVAS, SANJUANA Staley Unavailable [phone] PROBLEMS Condition Status Date Provider Notes Cardiovascular screening active Mariam Rivera INSURANCE PROVIDERS Payer name Policy type / Coverage type [place] red green party ID SELF PAY TREATMENT PLAN Date Name CT, Coronary Calcium Score CT, Coronary Calcium Score HISTORY OF PROCEDURES Procedure Date Procedure Name Provider Procedure Notes S tatus CT- Coronary CA score Abel Thompson MD completed CT- Coronary CA score Abel Thompson MD completed
--- OUTSIDE RECORDS SUMMARY | 2024-06-04 20:25 | XMS_ITS | Clinical Summary ---
Author Organization [facility] [address] [facility] [address] Address [address] [place] [address] Care Team Providers Care Commercial Airplane Pilot Name Role Phone Hailey Tom MD Primary Care Provider [phone] Medications spironolactone (ALDACTONE) 100 mg tablet Take 1 tablet (100 mg total) by mouth daily Active levothyroxine (SYNTHROID, LEVOTHROID) 25 mcg tablet Take 1 tablet (25 mcg total) by mouth daily Active pmfvnjfy-dyrr-d ps4-S-jsgk-bosw 750 mg-644 mg- 30 mg-1 mg tablet Take by mouth 2 (two) times a day. Active aspirin 81 mg tablet Take 1 tablet (81 mg total) by mouth daily Active multivitamin capsule Take 1 capsule by mouth daily Active minoxidil 5 % foam Apply topically daily. Active levonorgestreL (MIRENA) IUD 1 each by intrauterine route once Active Xhance 93 mcg/actuation aerosol breath activated 4 Active rosuvastatin (CRESTOR) 40 mg tablet Take 1 tablet (40 mg total) by mouth nightly 90 tablet 6 5 Active Active Problems No known active problems Encounters Date Type Department Care Team Description 04/09/2024 9:15 AM TERRITORY DEVELOPMENT MANAGER Office Visit [facility] Medical Group Cardiology [address] [facility] [address] [place] [address] Harjinder Bonilla MD [place] coronary artery calcium score less than 100 (Primary Dx); Family history of ischemic heart disease; Elevated lipoprotein(a) from Last 3 Months Medical History Medical History Date Comments Hx Other Medical atypical chest pain Hx Other Medical dyslipidemia Hypothyroidism Hypothyroidism Family History Medical History Relation Name Comments Heart attack Father 2 [place]; Cause of De ath: [place] Other Maternal Grandmother 2 [place], B reast Cancer; Cause of : [place], Breast Cancer Ovarian cancer Mother 2 Cancer, ovari an; Heart attack Paternal Grandmother 2 [place]; C ause of : [place] Relation Name Status Comments Father 1 (Age [...] on file Legal Sex Female 9:28 AM TERRITORY DEVELOPMENT MANAGER Gender Identity Not on file Sexual Orientation Not on file Obstetrics History Last Filed Vital Signs Vital Sign Reading Time Taken Comments Blood Pressure 112/64 04/09/2024 9:13 AM TERRITORY DEVELOPMENT MANAGER Pulse 84 04/09/2024 9:13 AM TERRITORY DEVELOPMENT MANAGER Temperature - - Respiratory Rate 15 12/15/2020 11:54 AM CDT Oxygen Saturation 98% 04/09/2024 9:13 AM TERRITORY DEVELOPMENT MANAGER Inhaled Oxygen Concentration - - Weight 73.5 kg (162 lb) 04/09/2024 9:13 AM TERRITORY DEVELOPMENT MANAGER Height 157.5 cm (5' 2 ) 04/09/2024 9:13 AM TERRITORY DEVELOPMENT MANAGER Body Mass Index 29.63 04/09/2024 9:13 AM TERRITORY DEVELOPMENT MANAGER Plan of Treatment Health Maintenance Due Date Last Done Comments Breast Cancer Screening-Mammogram 1970 Cervical Cancer Screening 1970 Colon Cancer Screening-Colonoscopy 1970 Depression Screening 1970 Hepatitis C Screening 1970 DTaP/Tdap/Td Vaccine (1 - Tdap) 1981 Hepatitis B Screening 1988 Regular Well Visit/Exam 18-64 1988 Zoster Vaccine (1 of 2) 2020 Influenza Vaccine (#1) 2023 9, 12/26/2018, 10/17/2013 Pneumococcal vaccine <65 Aged Out No longer eligible based on patient's age to complete this topic Insurance [facility] Care Teams Commercial Airplane Pilot Relationship Specialty Start Date End Date Hailey Tom MD PCP - General 05/13/14
--- OUTSIDE RECORDS SUMMARY | 2024-06-04 20:25 | XMS_ITS | Referral Summary ---
Author Organization [facility] [address] [facility] [address] Address [address] [place] [address] Care Team Providers Care Coater Name Role Phone Hailey Tom MD Primary Care Provider [phone] Encounters Date Type Department Care Team Description 04/09/2024 9:15 AM PARTY PLAN DEMONSTRATOR Office Visit [facility] Medical Group Cardiology [address] [facility] [address] [place] [address] Harjinder Bonilla MD [facility] coronary artery calcium score less than 100 (Primary Dx); Family history of ischemic heart disease; Elevated lipoprotein(a) from Last 3 Months Medications spironolactone (ALDACTONE) 100 mg tablet Take 1 tablet (100 mg total) by mouth daily Active levothyroxine (SYNTHROID, LEVOTHROID) 25 mcg tablet Take 1 tablet (25 mcg total) by mouth daily Active ahxpdwsc-hiyq-k we6-W-comb-bosw 750 mg-644 mg- 30 mg-1 mg tablet [...] Active Active Problems No known active problems Social History Tobacco Use Types Packs/Day Years Used Date Smoking Tobacco: Never Smokeless Tobacco: Never Tobacco Cessation:Counseling Given: Not Answered Alcohol Use Standard Drinks/Week Comments Yes 1 (1 standard drink = 0.6 oz pur e alcohol) Comments Unknown Sex and Gender Information Value Date Recorded Sex Assigned at Not on file Legal Sex Female 9:28 AM PARTY PLAN DEMONSTRATOR Gender Identity Not on file Sexual Orientation Not on file Last Filed Vital Signs Vital Sign Reading Time Taken Comments Blood Pressure 112/64 04/09/2024 9:13 AM PARTY PLAN DEMONSTRATOR Pulse 84 04/09/2024 9:13 AM PARTY PLAN DEMONSTRATOR Temperature - - Respiratory Rate 15 12/15/2020 11:54 AM CDT Oxygen Saturation 98% 04/09/2024 9:13 AM PARTY PLAN DEMONSTRATOR Inhaled Oxygen Concentration - - Weight 73.5 kg (162 lb) 04/09/2024 9:13 AM PARTY PLAN DEMONSTRATOR Height 157.5 cm (5' 2 ) 04/09/2024 9:13 AM PARTY PLAN DEMONSTRATOR Body Mass Index 29.63 04/09/2024 9:13 AM PARTY PLAN DEMONSTRATOR Plan of Treatment Not on file [facility] [place] [address] [facility] O Care Teams Coater Relationship Specialty Start Date End Date Hailey Tom MD PCP - General 05/13/14
--- NOTE | 2024-06-04 20:36 | ECG_ITS ---
Test Date: 2024-06-04 20:50:49 Measurements Intervals [place] Rate: 68 P: 71 IN: 141 QRS: 74 QRSD: 76 T: 39 QT: 368 QTc: 393 Interpretive Statements SINUS RHYTHM POSSIBLE LEFT ATRIAL ENLARGEMENT [-0.1mV P WAVE IN V1/V2] Compared to ECG 06/04/2024 19:02:17 No significant changes Electronically Signed On 06-05-2024 09:19:22 CDT by Erwin Miramontes M.D.
[2024-06-04 20:41] VITALS: BP 125/75; PULSE 72; RESP 18; TEMP 36.7; O2SAT 99
[2024-06-04 21:00] LABS: Basophils Absolute Auto 0.1 K/mm3 (0.0-0.1); Basophils Percent Auto 0.6 % (0.2-1.2); Eosinophils Absolute Auto 0.2 K/mm3 (0-0.3); Eosinophils Percent Auto 2.5 % (0-4.4); Hematocrit 39.4 % (37.0-47.0); Hemoglobin 13.5 g/dL (12.0-15.0); Immature Granulocyte Absolute 0.02 K/mm3 (0.00-0.031); Immature Granulocyte Percent A 0.2 % (0-0.5); Lymphocytes Absolute Auto 1.78 K/mm3 (0.9-3.2); Lymphocytes Percent Auto 21.8 % (18.3-44.2); Mean Corpuscular HGB Conc 34.3 g/dl (32-36); Mean Corpuscular Hemoglobin 32.5 pg (26-34); Mean Corpuscular Volume 94.7 fl (80-100); Mean Platelet Volume 12.3 fl (7.4-10.4); Monocytes Absolute Auto 0.6 K/mm3 (0.1-0.6); Monocytes Percent Auto 7.2 % (2.6-8.5); Neutrophils Absolute Auto 5.5 K/mm3 (1.3-6.7); Neutrophils Percent Auto 67.7 % (45.5-73.1); Platelet Count Result 245 k/mm3 (150-375); Red Blood Count 4.16 M/mm3 (4.2-5.4); Red Cell Distribution Width 12.6 % (11.5-14.5); White Blood Count 8.2 K/mm3 (4.5-10.0)
[2024-06-04 21:09] LABS: Alanine Aminotransferase 34 U/L (6-35); Albumin Level 4.9 g/dL (3.5-5.1); Alkaline Phosphatase 57 U/L (38-126); Anion Gap 11 mmol/L (4-12); Aspartate Amino Transferase 33 U/L (14-36); Bilirubin,Total 0.6 mg/dL (0.2-1.3); Blood Urea Nitrogen 16 mg/dL (7-17); Calcium 9.8 mg/dL (8.4-10.2); Carbon Dioxide 27 mmol/L (22-30); Chloride 100 mmol/L (98-107); Estimated Glomerular Filt Rate > 60; Glucose 91 mg/dL (65-110); Lipase 71 U/L (23-300); Sodium 138 mmol/L (137-145)
[2024-06-04 21:10] LABS: INR 0.9; Partial Thromboplastin Time 24.9 Seconds (22.3-36.8); Prothrombin Time 12.9 Seconds (11.1-14.7)
[2024-06-04 21:21] LABS: Troponin I < 0.012 ng/mL (0.000-0.034)
[2024-06-05 00:11] VITALS: BP 115/69; PULSE 72; RESP 18; O2SAT 100
[2024-06-05 01:00] LABS: Troponin I < 0.012 ng/mL (0.000-0.034)
[2024-06-05 01:37] VITALS: PULSE 69
[2024-06-05 01:38] VITALS: BP 126/71; PULSE 78; RESP 12; TEMP 36.7; O2SAT 99
[2024-06-05 01:39] VITALS: O2SAT 99
--- NOTE | 2024-06-05 02:14 | ECG_ITS ---
Test Date: 2024-06-05 02:49:29 Measurements Intervals [place] Rate: 70 P: 7 AL: 143 QRS: -14 QRSD: 82 T: 17 QT: 378 QTc: 410 Interpretive Statements SINUS RHYTHM Compared to ECG 06/04/2024 20:50:49 No significant changes Electronically Signed On 06-05-2024 11:57:15 CDT by Erwin Miramontes M.D.
--- OUTSIDE RECORDS SUMMARY | 2024-06-05 02:29 | XMS_ITS | Clinical Summary ---
Author Organization [facility] Address [address] [place] [address] Phone Care Team Providers Care Performance Tester Name Role Phone Unavailable Primary Care Provider Unavailabl e Social History Tobacco Use Types Packs/Day Years Used Date Smoking Tobacco: Never Assessed Comments Unknown Sex and Gender Information Value Date Recorded Sex Assigned at Not on file Legal Sex Female 5:40 AM ORANGE PICKER Gender Identity Not on file Sexual Orientation [...] 2) 2020 INFLUENZA VACCINE (#1) 2023 Insurance [facility] [id number]
--- OUTSIDE RECORDS SUMMARY | 2024-06-05 02:29 | XMS_ITS | Clinical Summary ---
Author Organization [facility] Address [address] [place] [address] Care Team Providers Care Workers' Compensation Magistrate Name Role Phone None, Provider MD Primary [...] on file Legal Sex Female 11:17 AM POWER PRESS SUPERVISOR Gender Identity Not on file Sexual Orientation Not on file Last Filed Vital Signs Vital Sign Reading Time Taken Comments Blood Pressure 133/73 05/04/2022 1:05 PM POWER PRESS SUPERVISOR Pulse 79 05/04/2022 1:05 PM POWER PRESS SUPERVISOR Temperature 36.8 C (98.3 F) 05/04/2022 1:05 PM POWER PRESS SUPERVISOR Respiratory Rate 16 05/04/2022 1:05 PM POWER PRESS SUPERVISOR Oxygen Saturation 99% 05/04/2022 1:05 PM POWER PRESS SUPERVISOR Inhaled Oxygen Concentration - - Weight 72.7 kg (160 lb 3.2 oz) 05/04/2022 1:05 P M POWER PRESS SUPERVISOR Height 157.5 cm (5' 2 ) 05/04/2022 1:05 PM POWER PRESS SUPERVISOR Body Mass Index 29.3 05/04/2022 1:05 PM POWER PRESS SUPERVISOR Plan of Treatment Health Maintenance Due Date [...] complete this topic Insurance [employer] Care Teams Workers' Compensation Magistrate Relationship Specialty Start Date End Date None, Provider, MD PCP - General UNKNOWN PHYSICIAN SPECIALTY 05/04/22
--- OUTSIDE RECORDS SUMMARY | 2024-06-05 02:29 | XMS_ITS | Continuity of Care Document ---
Author Organization [facility] Address [address] [place] [address] Phone Care Team Providers Care Veterinarian Assistant Name Role Phone Osorio OD, Deny Unavailable Unavailable Procedures Procedure Date Cntct Lens Hydrophilic Toric Or Prism Ba llast Medical Tax Contact Lens Hydrophilic, Spherical [facility] Contact Lens Check Contact Lens Check Contact Lens Check Contact Lens Check Contact Lens Check Contact Lens Check Contact Lens Hydrophilic, Spherical [facility] [employer] Eye Exam & Treatment Refraction Contact Lens Hydrophilic, Spherical [facility] Office/outpatient Visit, Est Office/outpatient Visit, Est Office/outpatient Visit, Est Eye Exam, New Patient Advance Directives Directive Yes / No Effective Date File Name No Information Encounters Encounter Description Practice Location Reason(s) For Visit Diagnoses Date Provider Providers Copied on Encounter [facility], [address], [place], [place], [id number], [place] tel:[phone] [facility] No Information Oct-2 6-201 0 Osorio OD Deny. [address], [place], [address], [place]. tel:[phone] [facility], [address], [place], [place], [id number], [place] tel:[phone] [facility] No Information Apr-2 3-201 0 Osorio OD Deny. [address] , [address], [place], [place], [facility], [place]. tel:[phone] [facility], [address], [place], [place], [id number], [place] tel:[phone] [facility] No Information Apr-0 8-201 0 Osorio OD Deny. [address] , [address], [place], [place], [facility], [place]. tel:[phone] [facility], [address], [place], [place], [id number], [place] tel:[phone] [facility] No Information Mar-2 5-201 0 Osorio OD Deny. [address] , [address], [place], [facility], [place]. tel:[phone] [facility], [address], [place], [place], [id number], [place] tel:[phone] [facility] No Information Mar-1 8-201 0 Osorio OD Deny. [address] , [address], [place], [facility], [place]. tel:[phone] [facility], [address], [place], [place], [id number], [place] tel:[phone] [facility] No Information Mar-0 4-201 0 Osorio OD Deny. [address] , [address], [place], [address], [place]. tel:[phone] [facility], [address], [place], [place], [id number], [place] tel:[phone] [facility] No Information Feb-1 9-201 0 Osorio OD Deny. [address] , [address], [place], [address], [place]. tel:[phone] [facility], [address] [place] [address] [address], [place], [place], [id number], [place] tel:[phone] [facility] No Information 1-201 0 Osorio OD Deny. [address] , [address], [place], [facility], [place]. tel:[phone] [facility], [address] [place] [address] [address], [place], [place], [id number], [place] tel:[phone] [facility] No Information 5-201 0 Osorio OD Deny. [address] , [address], [place], [facility], [place]. tel:[phone] [facility], [address] [place] [address] [address], [place], [place], [id number], [place] tel:[phone] [facility] No Information 4-201 0 Osorio OD Deny. [address] , [address], [place], [facility], [place]. tel:[phone] [facility], [address] [place] [address] [address], [place], [place], [id number], [place] tel:[phone] [facility] No Information 6-200 9 Osorio OD Deny. [address] , [address], [place], [address], [place]. tel:[phone] Office/outpat ient Visit, Est [facility], [address] [place] [address] [address], [place], [place], [id number], [place] tel:[phone] [facility] No Information 0 5-200 9 Osorio OD Deny. [address] , [address], [place], [facility], . tel:[phone] Office/outpat ient Visit, [facility], [address], [place], [place], [id number], tel:[phone] [facility] No Information Oct-1 5-200 9 Osorio OD Deny. [address] [facility] , [address], [place], [facility], [place]. tel:[phone] Office/outpat ient Visit, [facility], [address], [place], [place], [id number], tel:[phone] [facility] No Information Oct-0 8-200 9 Osorio OD Deny. [address] [facility] , [address], [place], [facility], . tel:[phone] [facility], [address], [place], [place], [id number], tel:[phone] [facility] No Information Oct-0 2-200 9 Krishnasamy Juanito. [address] [facility] [address], [place], [facility], . tel:[phone] Family History Family Member Type Diagnosis Age At Onset No Information Payers Payer name Insurance type Covered constitution party ID Authoriza tion(s) No Information Social [...]
--- OUTSIDE RECORDS SUMMARY | 2024-06-05 02:29 | XMS_ITS | Encounter Summary ---
Author Organization [facility] Address [address] [place] [address] Care Team Providers Care Office Machines Wirer Name Role Phone Unavailable Primary Care Provider [...] on file Legal Sex Female 5:40 AM CASTING ASSISTANT Gender Identity Not on file Sexual Orientation Not on file documented as of this encounter Plan of Treatment Not on file documented as of this encounter Visit Diagnoses Diagnosis Asymptomatic varicose veins documented in this encounter
--- OUTSIDE RECORDS SUMMARY | 2024-06-05 02:29 | XMS_ITS | Clinical Summary ---
Author Organization [facility] [address] [facility] [address] Address [address] [place] [address] Care Team Providers Care Shredding Machine Knife Changer Name Role Phone Hailey Tom MD Primary Care Provider [phone] Medications spironolactone (ALDACTONE) 100 mg tablet Take 1 tablet (100 mg total) by mouth daily Active levothyroxine (SYNTHROID, LEVOTHROID) 25 mcg tablet Take 1 tablet (25 mcg total) by mouth daily Active aeeatlap-lfxd-c ul5-M-urxo-bosw 750 mg-644 mg- 30 mg-1 mg tablet [...] Department Care Team Description 04/09/2024 9:15 AM SHELF STOCKER Office Visit [facility] Medical Group Cardiology [address] [facility] [address] [place] [address] Harjinder Bonilla MD [place] coronary artery calcium score less than 100 (Primary Dx); Family history of ischemic heart disease; Elevated lipoprotein(a) from Last 3 Months Medical History Medical History Date Comments Hx Other Medical atypical chest pain Hx Other Medical dyslipidemia Hypothyroidism Hypothyroidism Family History Medical History Relation Name Comments Heart attack Father 2 [place]; Cause of De ath: [place] Other Maternal Grandmother 2 [place], B reast Cancer; Cause of : [place], Breast Cancer Ovarian cancer Mother 2 Cancer, ovari an; Heart attack Paternal Grandmother 2 [place]; C ause of : [place] Relation Name Status Comments Father 1 (Age [...] on file Legal Sex Female 9:28 AM SHELF STOCKER Gender Identity Not on file Sexual Orientation Not on file Obstetrics History Last Filed Vital Signs Vital Sign Reading Time Taken Comments Blood Pressure 112/64 04/09/2024 9:13 AM SHELF STOCKER Pulse 84 04/09/2024 9:13 AM SHELF STOCKER Temperature - - Respiratory Rate 15 12/15/2020 11:54 AM CDT Oxygen Saturation 98% 04/09/2024 9:13 AM SHELF STOCKER Inhaled Oxygen Concentration - - Weight 73.5 kg (162 lb) 04/09/2024 9:13 AM SHELF STOCKER Height 157.5 cm (5' 2 ) 04/09/2024 9:13 AM SHELF STOCKER Body Mass Index 29.63 04/09/2024 9:13 AM SHELF STOCKER Plan of Treatment Health Maintenance Due Date [...] patient's age to complete this topic Insurance [facility] Care Teams Shredding Machine Knife Changer Relationship Specialty Start Date End Date Hailey Tom MD PCP - General 05/13/14
--- OUTSIDE RECORDS SUMMARY | 2024-06-05 02:29 | XMS_ITS | Encounter Summary ---
Author Organization [facility] Healthcare Address [address] [place] [address] Care Team Providers Care Lieutenant Fire Fighter Name Role Phone Hailey Tom MD Primary Care Provider [phone] Encounter Details Date Type Department Care Team (Late st Contact Info) Description 06/22/2020 Telephone [facility] [address] [place] [address] Dalia Aguayo, Social History Tobacco Use Types Packs/Day Years Used Date Smoking Tobacco: Never Smokeless Tobacco: Never Alcohol Use Standard Drinks/Week Comments Yes 1 (1 standard drink = 0.6 oz pur e alcohol) Comments Unknown Sex and Gender Information Value Date Recorded Sex Assigned at Not on file Legal Sex Female 9:28 AM PAPER CAP MACHINE OPERATOR Gender Identity Not on file Sexual Orientation Not on file documented as of this encounter Plan of Treatment Not on file documented as of this encounter Visit Diagnoses Not on filedocumented in this encounter Care Teams Lieutenant Fire Fighter Relationship Specialty Start Date End Date Hailey Tom MD PCP - General 05/13/14 documented as of this encounter
--- OUTSIDE RECORDS SUMMARY | 2024-06-05 02:29 | XMS_ITS | Referral Summary ---
Author Organization [facility] [address] Address [address] [place] [address] Care Team Providers Care Spiral Runner Name Role Phone Hailey Tom MD Primary Care Provider [phone] Encounters Date Type Department Care Team Description 04/09/2024 9:15 AM MECHANICAL SHOP LABORER Office Visit [facility] [address] [place] [address] Harjinder Bonilla MD [facility] coronary artery calcium score less than 100 (Primary Dx); Family history of ischemic heart disease; Elevated lipoprotein(a) from Last 3 Months Medications spironolactone (ALDACTONE) 100 mg tablet Take 1 tablet (100 mg total) by mouth daily Active levothyroxine (SYNTHROID, LEVOTHROID) 25 mcg tablet Take 1 tablet (25 mcg total) by mouth daily Active huoqdhtx-lqgy-r [id number]-bosw 750 mg-644 mg- 30 mg-1 mg tablet [...] on file Legal Sex Female 9:28 AM MECHANICAL SHOP LABORER Gender Identity Not on file Sexual Orientation Not on file Last Filed Vital Signs Vital Sign Reading Time Taken Comments Blood Pressure 112/64 04/09/2024 9:13 AM MECHANICAL SHOP LABORER Pulse 84 04/09/2024 9:13 AM MECHANICAL SHOP LABORER Temperature - - Respiratory Rate 15 12/15/2020 11:54 AM CDT Oxygen Saturation 98% 04/09/2024 9:13 AM MECHANICAL SHOP LABORER Inhaled Oxygen Concentration - - Weight 73.5 kg (162 lb) 04/09/2024 9:13 AM MECHANICAL SHOP LABORER Height 157.5 cm (5' 2 ) 04/09/2024 9:13 AM MECHANICAL SHOP LABORER Body Mass Index 29.63 04/09/2024 9:13 AM MECHANICAL SHOP LABORER Plan of Treatment Not on file [facility] [place] [address] [facility] O Care Teams Spiral Runner Relationship Specialty Start Date End Date Hailey Tom MD PCP - General 05/13/14
--- OUTSIDE RECORDS SUMMARY | 2024-06-05 02:29 | XMS_ITS | CONTINUITY OF CARE DOCUMENT ---
Author Name [email or web address] Address Unknown Organization [facility] Address [address] [place] [address] Phone [phone] Care Team Providers Care Jackerman Name Role Phone Jay VIVAS, Abel Unavailable VERENA MASSEY MD Unavailable [phone] WILFREDO VIVAS, SANJUANA Staley Unavailable PROBLEMS Condition Status Date Provider Notes Cardiovascular screening active Mariam Rivera INSURANCE PROVIDERS Payer name Policy type / Coverage type [place] red republican ID SELF PAY TREATMENT PLAN Date Name CT, Coronary Calcium Score CT, Coronary Calcium Score HISTORY OF PROCEDURES Procedure Date Procedure Name Provider Procedure Notes S tatus CT- Coronary CA score Abel Thompson MD completed CT- Coronary CA score Abel Thompson MD completed
--- OUTSIDE RECORDS SUMMARY | 2024-06-05 02:29 | XMS_ITS | Clinical Summary ---
Author Organization [facility] Address [address] [place] [place] [address] Care Team Providers Care Cultural Centre Manager Name Role Phone Hailey Tom MD Primary Care Provider [phone] Source Comments [facility],non-owned Affiliates and Associated Physician Practices is amultiple site organization consisting of ambulatory clinics and hospital sitesin [place], [place], [place] and [place]. This disclosure is being madepursuant to the Care Everywhere program and may not contain all information available regarding this patient. Last updated 17.[facility] Allergies No known active allergies Medications * [...] age to complete this topic Care Teams Cultural Centre Manager Relationship Specialty Start Date End Date Hailey Tom MD [address] [place] [address] [facility] - General 09/24/15
--- NOTE | 2024-06-05 02:32 | ED.GENADULT ---
HPI - General Adult General Chief complaint: Chest Pain Stated complaint: chest pain Time Seen by Provider: 06/05/24 02:01 History of Present Illness HPI narrative: Patient is a 53-year-old female presents emergency department chief complaint of chest pain. Patient reports that she has family history for cardiac disease reports she has had negative workups before in the past patient does see cardiology with Dr. Gomez patient states that today she was playing tennis and had an episode of burning in her chest while she was playing patient does report that his become much improved and reports that she had a similar episode about 2 days ago when she was walking her dog the patient reports that she has had a stress test many years ago reports that she had no diaphoresis denies shortness of breath denies radiation of the arm or neck. Related Data Home Medications ?Medication ?Instructions ?Recorded ?Confirmed ?Last Taken ?Type aspirin 81 mg tablet,delayed 81 mg PO DAILY 05/21/19 12/14/23 01/27/21 History release (Adult Low Dose Aspirin) glucosamine-chondroitin 250 mg-200 1 tablet PO BID 09/10/19 12/14/23 01/27/21 History mg tablet (Osteo Bi-Flex) levonorgestrel (Mirena) 1 device intrauterine ONCE 09/10/19 12/14/23 01/27/21 History minoxidil 5 % topical foam 5 % topical DAILY 09/10/19 12/14/23 01/27/21 History (Rogaine) multivitamin 1 tablet PO DAILY 09/10/19 12/14/23 01/27/21 History rosuvastatin 20 mg tablet 20 mg PO DAILY 08/13/20 12/14/23 01/27/21 History Allergies Allergy/AdvReac Type Severity Reaction Status Date / Time No Known Allergies Allergy Verified 06/04/24 19:54 Review of Systems Review of Systems: A 10 system review of systems was completed on the patient and is negative except for what is stated in the HPI. Nursing and ancillary documentation was reviewed. [facility] Past Medical History Medical History Female pattern hair loss Hypothyroidism, unspecified Hyperlipidemia, unspecified Surgical History Surgical History Hx of section 2001 & 2005 Family History Family History Father Hypertension, Onset Age: 40 Cerebrovascular accident, Onset Age: 40 Family history of coronary artery disease, Onset Age: 40 Patient's father is , Onset Age: 40 Mother Family history of malignant neoplasm of ovary Patient's mother is , Onset Age: 40 Social History Social History Smoking status: Never smoker Second hand tobacco smoke exposure: No Alcohol intake: current Drinks per week: 1 Alcohol use details: social Substance use: never Substance use type: does not use Current Housing: Decline to Answer Concerned About Future Housing: Decline to Answer Difficulty Paying Gas/Electric Bills: Decline to Answer Difficulty Paying for Meds: Decline to Answer Currently Unemployed: Decline to Answer Education: Decline to Answer Difficulty w/ Childcare or Family Care: Decline to Answer Living arrangements: with family Gender identity (if verbalized by the patient): Female Sexual Orientation (if Verbalized by the Patient): Straight or Heterosexual Spiritual care concerns: No Agree to blood products: Yes Exam Narrative: GENERAL: Well-appearing, well-nourished, and in no acute distress. HEAD: Normocephalic, atraumatic. EYES: PERRLA and EOMI. ENT: Nares clear, no rhinorrhea or epistaxis. Mucous membranes moist. NECK: Supple. CHEST: Clear to auscultation. No respiratory distress. HEART: Regular rate and rhythm. No murmur heard. Normal peripheral pulses. ABDOMEN: Soft, nontender, nondistended, normal active bowel sounds. EXTREMITIES: Normal range of motion. No edema. SKIN: Warm, dry, no rash. NEURO: No focal deficits. Alert and oriented x3. PSYCH: Normal mood and affect. Course Vital Signs Vital signs: Vital Signs Temperature 36.7 C 06/04/24 20:41 Pulse Rate 72 06/04/24 20:41 Respiratory Rate 18 06/04/24 20:41 Blood Pressure 125/75 06/04/24 20:41 Pulse Oximetry 99 06/04/24 20:41 Oxygen Delivery Room Air 06/04/24 20:41 Temperature 36.7 C 06/05/24 01:38 Pulse Rate 78 06/05/24 01:38 Respiratory Rate 12 06/05/24 01:38 Blood Pressure 126/71 06/05/24 01:38 Pulse Oximetry 99 06/05/24 01:39 Oxygen Delivery Room Air 06/05/24 01:39 Medical Decision Making MDM Narrative Medical decision making narrative: Differential diagnosis includes ACS, noncardiac chest pain, atypical chest pain Chest x-ray showed no focal infiltrate EKG showed no acute ischemic changes 0 hour 3 hour and 6 hour troponins were all negative Was discussed with the patient whether to admit the patient for observation and Cardiology consultation versus outpatient follow-up with her cart attendant since the patient has had 3- troponins in the emergency department patient would opt for outpatient follow-up with her cart attendant Vital Signs Vital Signs: Vital Signs Temperature 36.7 C 06/04/24 20:41 Pulse Rate 72 06/04/24 20:41 Respiratory Rate 18 06/04/24 20:41 Blood Pressure 125/75 06/04/24 20:41 Pulse Oximetry 99 06/04/24 20:41 Oxygen Delivery Room Air 06/04/24 20:41 Temperature 36.7 C 06/05/24 01:38 Pulse Rate 78 06/05/24 01:38 Respiratory Rate 12 06/05/24 01:38 Blood Pressure 126/71 06/05/24 01:38 Pulse Oximetry 99 06/05/24 01:39 Oxygen Delivery Room Air 06/05/24 01:39 Lab Data 06/04/24 20:51 06/04/24 20:51 Labs: Lab Results 06/04/24 06/05/24 06/05/24 Range/Units 20:51 00:33 02:23 WBC 8.2 (4.5-10.0) K/mm3 RBC 4.16 L (4.2-5.4) M/mm3 Hgb 13.5 (12.0-15.0) g/dL Hct 39.4 (37.0-47.0) % MCV 94.7 (80-100) fl MCH 32.5 (26-34) pg MCHC 34.3 (32-36) g/dl RDW 12.6 (11.5-14.5) % Plt Count 245 (150-375) k/mm3 MPV 12.3 H (7.4-10.4) fl Immature Gran % (Auto) 0.2 (0-0.5) % Neut % (Auto) 67.7 (45.5-73.1) % Lymph % (Auto) 21.8 (18.3-44.2) % [place] % (Auto) 7.2 (2.6-8.5) % Eos % (Auto) 2.5 (0-4.4) % Baso % (Auto) 0.6 (0.2-1.2) % Lymph # (Auto) 1.78 (0.9-3.2) K/mm3 [place] # (Auto) 0.6 (0.1-0.6) K/mm3 Eos # (Auto) 0.2 (0-0.3) K/mm3 Baso # (Auto) 0.1 (0.0-0.1) K/mm3 Abs Immat Gran (auto) 0.02 (0.00-0.031) K/mm3 Absolute Neuts (auto) 5.5 (1.3-6.7) K/mm3 Absolute Nucleated RBC 0.000 (0.0-0.012) K/mm3 Nucleated RBC % 0.0 (0.0-0.2) % PT 12.9 (11.1-14.7) Seconds INR 0.9 APTT 24.9 (22.3-36.8) Seconds Sodium 138 (137-145) mmol/L Potassium 4.0 (3.4-5.0) mmol/L Chloride 100 (98-107) mmol/L Carbon Dioxide 27 (22-30) mmol/L Anion Gap 11 (4-12) mmol/L BUN 16 (7-17) mg/dL Creatinine 0.86 (0.7-1.0) mg/dL Estim Creat Clear Calc Not Reportable Estimated GFR > 60 (59 - ) Glucose 91 (65-110) mg/dL Calcium 9.8 (8.4-10.2) mg/dL Total Bilirubin 0.6 (0.2-1.3) mg/dL AST 33 (14-36) U/L ALT 34 (6-35) U/L Alkaline Phosphatase 57 (38-126) U/L Troponin I < 0.012 < 0.012 Pending (0.000-0.034) ng/mL Total Protein 9.0 H (6.3-8.2) g/dL Albumin 4.9 (3.5-5.1) g/dL Lipase 71 (23-300) U/L Discharge Plan Discharge Clinical Impression: Atypical chest pain Patient Disposition: Home, Self-Care Condition: Stable Instructions: Antibiotic Form, Chest Pain (ED) Patient Language: Macedonian Prescriptions: No Action glucosamine-chondroitin [Osteo Bi-Flex] 250-200 mg tablet 1 tablet PO BID Rx Instructions: give after food/meal multivitamin Tablet 1 tablet PO DAILY Mirena 20 mcg/24 hours (5 yrs) 52 mg intrauterine device 1 device I-UTERINE ONCE Rx Instructions: as a single dose minoxidil [Rogaine] 5 % foam 5 % TOPICAL DAILY rosuvastatin 20 mg tablet 20 mg PO DAILY methylprednisolone [Medrol (Riaz)] 4 mg tablets,dose pack See Rx Instructions PO PER PKG DIR Qty: 21 0RF Rx Instructions: PO PER PKG DIR aspirin [Adult Low Dose Aspirin] 81 mg tablet,delayed release (DR/EC) 81 mg PO DAILY spironolactone 100 mg tablet See Rx Instructions .ROUTE .COMPLEX Qty: 90 1RF Dose Instruction: TAKE 1 TABLET BY MOUTH DAILY Rx Instructions: TAKE 1 TABLET BY MOUTH DAILY levocetirizine [Xyzal] 5 mg tablet 5 mg PO DAILY Qty: 90 1RF levothyroxine 25 mcg tablet See Rx Instructions .ROUTE .COMPLEX Qty: 90 3RF Dose Instruction: TAKE 1 TABLET BY MOUTH DAILY Rx Instructions: TAKE 1 TABLET BY MOUTH DAILY Follow-up/Referrals: Harjinder Bonilla MD [Primary Care Provider] -
[2024-06-05 02:53] LABS: Troponin I < 0.012 ng/mL (0.000-0.034)
[2024-06-05 03:08] VITALS: BP 112/72; PULSE 68; RESP 12; TEMP 36.6; O2SAT 97
== END 2024-06-05 03:30 | disposition home or self-care (01) ==
PROVIDERS: Emergency Provider Emergency Medicine; PCP Internal Medicine Cardiovascular Disease
DX: R07.89 Other chest pain (principal); E03.9 Hypothyroidism, unspecified; E78.5 Hyperlipidemia, unspecified
CPT/HCPCS: 36415; 71046; 80053; 83690; 84484; 85025; 85610; 85730; 93005; 99284